=== PATIENT | male | born 1975 | race Caucasian/White ===

== ENCOUNTER 2021-02-08 11:47 | Outpatient (REF) | payer OTHER, SELFPAY ==
[2021-02-08 13:58] LABS: Hematocrit 38.6 % (42.0-52.0); Hemoglobin 13.1 g/dl (14.0-18.0); Mean Corpuscular HGB Conc 33.9 g/dl (31.0-36.0); Mean Corpuscular Hemoglobin 31.9 pg (27.0-33.0); Mean Corpuscular Volume 93.9 fL (80.0-98.0); Mean Platelet Volume 9.3 fL (9.4-12.4); Platelet Count 171 X10*3/uL (160-400); Red Blood Count 4.11 X10*6/uL (4.60-5.80); White Blood Count 4.4 X10*3/uL (4.8-10.8)
[2021-02-08 14:32] LABS: Alanine Aminotransferase 25 U/L (0-40); Albumin Level 4.2 g/dL (3.5-5.0); Alkaline Phosphatase 55 U/L (39-117); Anion Gap 10 (12-20); Aspartate Amino Transferase 18 U/L (5-37); Bilirubin Total 0.5 mg/dL (0.0-1.0); Blood Urea Nitrogen 16 mg/dL (9-16); Calcium 9.5 mg/dL (8.4-10.2); Chloride 109 mmol/L (96-108); Cholesterol 202 mg/dL; Estimated Glomerular Filt Rate > 60; Glucose Fasting 93 mg/dL (60-99); HDL Cholesterol 38 mg/dL; LDL Cholesterol Calculated 142 mg/dl; Potassium 4.2 mmol/L (3.3-5.1); Sodium 141 mmol/L (135-145); Total Protein 6.8 g/dL (6.5-8.0); Triglycerides 111 mg/dL
[2021-02-08 14:36] LABS: Carbon Dioxide 26 mmol/L (22-29)
[2021-02-08 14:44] LABS: TSH reflex Free T4 2.25 uIU/mL (0.32-4.0)
[2021-02-08 14:59] LABS: Erythrocyte Sedimentation Rate 6 MM/HR (0-15)
[2021-02-10 13:41] LABS: CRP High Sensitivity 2.4 mg/L
== END 2021-02-08 11:48 | disposition home or self-care (01) ==
LOC: HO.WFDLDS 11:47
PROVIDERS: Visit Provider Hospitalist
DX: Z00.01 Encounter for general adult medical examination with abnormal findings (principal); K57.92 Diverticulitis of intestine, part unspecified, without perforation or abscess without bleeding
CPT/HCPCS: 36415; 80053; 80061; 84443; 85027; 85652; 86141

== ENCOUNTER 2021-05-10 11:29 | Outpatient (REF) | payer OTHER, SELFPAY ==
[2021-05-10 14:40] LABS: Iron 110 mcg/dL (45-160); Percent Iron Saturation 45 % (15-50); Total Iron Binding Capacity 245 mcg/dL (228-428); Unsaturated Iron Binding 135 ug/dL
[2021-05-10 15:16] LABS: Folate 2.1 ng/mL (> or = 4.0); Vitamin B12 254 pg/mL (200-900)
== END 2021-05-10 11:30 | disposition home or self-care (01) ==
LOC: HO.WFDLDS 11:29
PROVIDERS: Visit Provider Hospitalist
DX: D64.9 Anemia, unspecified (principal)
CPT/HCPCS: 36415; 82607; 82746; 83540

== ENCOUNTER 2021-06-08 12:55 | Outpatient (REF) | payer OTHER, SELFPAY ==
[2021-06-08 13:27] LABS: Hematocrit 41.6 % (42.0-52.0); Hemoglobin 13.9 g/dl (14.0-18.0); Mean Corpuscular HGB Conc 33.4 g/dl (31.0-36.0); Mean Corpuscular Hemoglobin 31.7 pg (27.0-33.0); Platelet Count 180 X10*3/uL (160-400); Red Blood Count 4.38 X10*6/uL (4.60-5.80); Red Cell Distribution Width 12.5 % (11.0-16.0); White Blood Count 4.7 X10*3/uL (4.8-10.8)
[2021-06-08 14:31] LABS: Ferritin 209 ng/mL (20-250)
== END 2021-06-08 12:56 | disposition home or self-care (01) ==
LOC: HO.WFDLDS 12:55
PROVIDERS: Visit Provider Hospitalist
DX: D64.9 Anemia, unspecified (principal)
CPT/HCPCS: 36415; 82728; 85027

== ENCOUNTER → 2021-07-16 10:03 | Outpatient (BNVA) | payer OTHER, SELFPAY | PROVIDERS: PCP Hospitalist; Referring Provider Hospitalist; Visit Provider Internal Medicine Gastroenterology | DX: K57.92 Diverticulitis of intestine, part unspecified, without perforation or abscess without bleeding (principal) ==

== ENCOUNTER 2021-07-19 13:44 | Day surgery (SDC) | payer OTHER, MEDICAID, SELFPAY ==
--- NOTE | 2021-07-18 09:48 | P.CONAN_ITS ---
Documented by User: Elly Gracia NP 07/18/21 09:49 HPI - Anesthesia Eval Consult details Narrative: 46yo M for Upper Endoscopy and Colonoscopy PMFSH Active Problems Active Problems: All Active Problems (Updated 05/10/21 @ 11:15 by Madeline Pascual NP) Anemia (Acute) Rhinitis (Acute) Encounter for routine adult physical exam with abnormal findings (Acute) BMI 37.0-37.9, adult (Acute) Seasonal allergies (Acute) Fatigue (Acute) Diverticulitis (Acute) Encounter to establish care (Acute) Past Medical History Medical History COVID Diverticulitis Fatigue Hernia Family History Family History (Updated 07/16/21 @ 10:14 by FELICIA Avina) Father HTN (hypertension) Stroke Heart attack Mother Lung cancer Maternal Grandmother Lung cancer Other Substance use disorder Surgical History Surgical History Hx of cholecystectomy Social History Social History Housing: House Patient Tobacco Use Status: Never used Tobacco Tobacco use type: Cigarette Cigarettes Per Day: 5 e-Cigarette/Vaping Use: Never Used Use of substances other than those prescribed or required for medical reasons: Yes Are you DNR?: No Advance Directives: No Advance Directives Information Provided: Yes Recently lost weight without trying: No Nutrition Risks: No Nutritional Risk service: No Current occupational status: employed 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 Allergies Allergy/AdvReac Type Severity Reaction Status Date / Time penicillin V Allergy Unknown unknown, Verified 07/16/21 10:11 patient was very young Home Medications Medication Instructions Recorded Confirmed Last Taken Type cetirizine 10 mg capsule (Zyrtec) 10 mg PO DAILY PRN 01/04/21 02/08/21 Unknown History ibuprofen 200 mg tablet 800 mg PO DAILY PRN tab 02/08/21 02/08/21 Unknown History multivit with minerals-iron 18 tab PO 07/16/21 Unknown History mg-folic ac 400 mcg-vit K 25 mcg tablet (Adults Multivitamin) Exam Exam Date and Time: July 18, 2021 0948 Pertinent Lab Results Pertinent Lab Results: Laboratory Tests 02/08/21 06/08/21 11:56 13:00 WBC 4.7 L Hgb 13.9 L Hct 41.6 L Plt Count 180 Sodium 141 Potassium 4.2 Chloride 109 H Carbon Dioxide 26 BUN 16 Creatinine 0.86 Assessment and Plan Assessment Anesthesia Assessment: Chart Reviewed Documented by User: Hank Gaines MD 07/19/21 14:02 [facility] Past Medical History Medical History COVID Diverticulitis Fatigue Hernia Family History Family History (Updated 07/16/21 @ 10:14 by FELICIA Avina) Father HTN (hypertension) Stroke Heart attack Mother Lung cancer Maternal Grandmother Lung cancer Other Substance use disorder Family history of problems with anesthesia: No Surgical History Surgical History Hx of cholecystectomy History of Problems with Anesthesia: No Social History Social History Housing: House Patient Tobacco Use Status: Never used Tobacco Tobacco use type: Cigarette Cigarettes Per Day: 5 e-Cigarette/Vaping Use: Never Used Use of substances other than those prescribed or required for medical reasons: Yes Are you DNR?: No Advance Directives: No Advance Directives Information Provided: Yes Recently lost weight without trying: No Nutrition Risks: No Nutritional Risk service: No Current occupational status: employed 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 Allergies Allergy/AdvReac Type Severity Reaction Status Date / Time penicillin V Allergy Unknown unknown, Verified 07/16/21 10:11 patient was very young Home Medications Medication Instructions Recorded Confirmed Last Taken Type cetirizine 10 mg capsule (Zyrtec) 10 mg PO DAILY PRN 01/04/21 02/08/21 Unknown History ibuprofen 200 mg tablet 800 mg PO DAILY PRN tab 02/08/21 02/08/21 Unknown History multivit with minerals-iron 18 tab PO 07/16/21 Unknown History mg-folic ac 400 mcg-vit K 25 mcg tablet (Adults Multivitamin) Exam Airway Loose/Missing/Broken Teeth: Yes Assessment and Plan Assessment Anesthesia Assessment: Anesthesia Plan Discussed Final Anesthetic Review Family History of Problems with Anesthesia: No History of Problems with Anesthesia: No NPO: Yes ASA Class: III Final Preanesthetic Review: No Changes in Pt Med Stat, Meds/Allgs Chart Reviewed, Consent Obtained/Reviewed and Anes Risks/Benef Reviewed Patient Risk: Intermediate Procedure Risk: Low Anesthetic Plan Anesthetic Plan: MAC: Disposition: Standard PACU
--- NOTE | 2021-07-19 13:34 | MHC.SHP ---
Pre-Procedural Eval Section A Date of Service: 07/19/21 The patient is an INPATIENT: No The History & Physical has been completed within 30 days and I have reviewed it.: Yes Section B Chief Complaint: anemia,epi pain Allergies: Allergies Allergy/AdvReac Type Severity Reaction Status Date / Time penicillin V Allergy Unknown unknown, Verified 07/16/21 10:11 patient was very young Plan I have reviewed the history and physical and performed a pertinent physical examination on my patient. No changes have occurred unless specified.
[2021-07-19 13:50] VITALS: BMI 39.5
[2021-07-19 13:54] VITALS: BP 156/118; PULSE 82; RESP 18; TEMP 36.9; O2SAT 98
[2021-07-19] MEDS: Lactated Ringers 1,000 ML 100 ML IVCONT (14:07)
--- NOTE | 2021-07-19 14:29 | P.OP_ITS ---
Operative Note Operative Note Date of Service: 07/19/21 Narrative: Operative Information Procedure Description: EGD, Colonoscopy Indication: anemia, epigastric pain Anesthesia: MAC FLEXIBLE TRANSORAL UPPER GASTROINTESTINAL ENDOSCOPY AND COLONOSCOPY PROCEDURE NOTE UPPER ENDOSCOPY Consent: Indications for the procedure and potential complications of bleeding, perforation, reaction to medications and missed diagnosis were discussed with the patient and informed consent was obtained. Instrument: Olympus GIF H 190 J mid size upper endoscope Monitoring: Vital signs and clinical assessment, continuous EKG monitoring, Pulse oximetry, Carbon Dioxide monitoring and blood pressure monitoring were done throughout the procedure. Procedure: The patient was placed in the left lateral decubitis position and pre-procedure medications were administered and a bite block was placed. The endoscope was inserted into the mouth and advanced under direct vision to the third part of duodenum. A careful inspection was made as the upper endoscope was withdrawn including a retroflexed examination of the proximal stomach; Findings and interventions are described below. Findings: Larynx:normal Esophagus: GE junction at 43 cm, diaphragm hiatus at 43 cm, esophagitis at GEJ with irregular Z line, bx taken Stomach: Moderate intense erythema. Biopsies were obtained. Grade 2 flap valve on retroflexed examination of the cardia. Bilious fluid noted in stomach. Duodenum: Normal bulb and descending duodenum, bx taken Intervention: Biopsies as noted above COLONOSCOPY Instrument: Olympus variable stiffness ADULT scope 190L Colonoscopy Monitoring: Vital signs and clinical assessment, continuous EKG monitoring, Pulse oximetry, Carbon Dioxide monitoring and blood pressure monitoring were done throughout the procedure. Colon withdrawal time was 8 minutes. Procedure: The patient was placed in the left lateral decubitis position and pre-procedure medications were administered. After a digital rectal examination of the ano-rectum, the video colonoscope was inserted into the rectum and advanced through the colon to the cecum/TI. The colonoscope was slowly withdrawn in a retrograde panoramic fashion and the colon mucosa was carefully examined including a retroflexed view of the rectum. Findings and interventions are described below. Procedure Difficulty: easy Findings: Terminal Ileum-normal Cecum:normal Ascending Colon: normal Transverse Colon -normal Descending Colon:normal Sigmoid Colon: patchy erythema and edema of mucosa, small diverticula noted with mucosal hypertrophy Rectum: Retroflexion with small internal hemorrhoids, grade I Anorectum - normal Colon preparation: [place] Bowel Preparation Scale Right colon; 3 Transverse colon: 3 Left colon; 3 (0 = Unprepared colon segment with mucosa not seen due to solid stool that cannot be cleared. 1 = Portion of mucosa of the colon segment seen, but other areas of the colon segment not well seen due to staining, residual stool and/or opaque liquid. 2 = Minor amount of residual staining, small fragments of stool and/or opaque liquid, but mucosa of colon segment seen well. 3 = Entire mucosa of colon segment seen well with no residual staining, small fragments of stool or opaque liquid) Impression and Post Procedure Diagnosis: Endoscopy Findings: esophagitis gastritis, possibly bile acid assocaited reflux or from nsaid use Colonoscopy Findings: internal hemorrhoids SCAD (segmental colitis associated with diverticulosis) Plan: Await Pathology results Repeat Colonoscopy in 10 years or earlier if clinically indicated High fiber diet leaflet avoid straining at stool, epsom salts and sitz bath, anusol supps or cream If H pylori pos then treat, can use PPi in meantime, Above findings were reviewed with the patient and relevant handouts were provided if indicated.
--- NOTE | 2021-07-19 14:29 | PM.OP ---
Brief Operative Note Date of Service: 07/19/21 Pre-op diagnosis: anemia, epigastric pain Post-op diagnosis: same Procedure: see op note Surgeon: Adriana Cid MD Anesthesia: MAC Was an Market Relationship Manager used for this Procedure?: No Estimated blood loss (mL): 0 Condition: stable Disposition: PACU
[2021-07-19 15:03] VITALS: BP 120/75; PULSE 91; RESP 20; TEMP 36.4; O2SAT 96
[2021-07-19 15:18] VITALS: BP 125/76; PULSE 69; RESP 20; TEMP 36.4; O2SAT 98
== END 2021-07-19 15:54 ==
LOC: HO.SSS 13:45
PROVIDERS: PCP Hospitalist; Visit Provider Internal Medicine Gastroenterology
PROC: (CPT 45380; principal; 2021-07-19 15:00)
DX: D64.9 Anemia, unspecified (principal); Z87.19 Personal history of other diseases of the digestive system; K57.30 Diverticulosis of large intestine without perforation or abscess without bleeding; K64.0 First degree hemorrhoids; K52.9 Noninfective gastroenteritis and colitis, unspecified; K20.80 Other esophagitis without bleeding; K29.50 Unspecified chronic gastritis without bleeding; R10.13 Epigastric pain; R53.83 Other fatigue; Z86.16 Personal history of COVID-19; Z88.0 Allergy status to penicillin; Z90.49 Acquired absence of other specified parts of digestive tract
CPT/HCPCS: 45380; 43239; 88305; 88342; J2250

== ENCOUNTER 2021-08-16 10:30 | Emergency (ER) | payer OTHER, MEDICAID, SELFPAY ==
[2021-08-16 10:40] VITALS: BP 147/89; PULSE 71; RESP 20; TEMP 36.6; O2SAT 97; BMI 39.0
--- NOTE | 2021-08-16 10:54 | ED.GENADULT ---
HPI - General Adult General Chief complaint: General Medical Stated complaint: hemmhoids Time Seen by Provider: 08/16/21 10:54 Source: patient Mode of arrival: ambulatory Limitations: no limitations History of Present Illness HPI narrative: 46 y/o male presents to the ER with history of diverticulosis, hemorrhoids who presents to the ER with 6/10 rectal pain. He states yesterday the pain got acutely worse. He has been constipated lately. He felt a now external hemorrhoid protrude and he was able to partially replaced it. He denies any bleeding. He has not used any topical creams or ointments. He had a recent colonoscopy showing internal hemorrhoids. He reports a history of hemorrhoids for the last 8 years and suffers intermittently from constipation with flare ups. He has never had a surgical consult or needed any surgical treatments. MD complaint: Painful hemorrhoid Onset (ago): day(s) (1) Location: buttocks Radiation: non-radiation Severity: moderate Severity scale (1-10): 6 Quality: aching Pain Consistency: constant Relieving factors: rest Exacerbating factors: other (Sitting) Associated symptoms: denies other symptoms Treatments prior to arrival: none Related Data Home Medications Medication Instructions Recorded Confirmed cetirizine 10 mg capsule (Zyrtec) 10 mg PO DAILY PRN 01/04/21 02/08/21 ibuprofen 200 mg tablet 800 mg PO DAILY PRN 02/08/21 02/08/21 multivit with minerals-iron 18 tab PO 07/16/21 mg-folic ac 400 mcg-vit K 25 mcg tablet (Adults Multivitamin) Previous Rx's Medication Instructions Recorded fluticasone propionate 50 2 spray intranasal DAILY 1 month 01/15/21 mcg/actuation nasal #16 grams spray,suspension folic acid 1 mg tablet 1 mg PO DAILY #90 tabs 05/10/21 dicyclomine 10 mg capsule 10 mg PO TID 1 month #90 caps 06/08/21 peg-electrolyte solution 420 gram 240 ml PO Q10M #4,000 mL 07/16/21 oral solution (Nulytely [place]) pantoprazole 40 mg tablet,delayed 40 mg PO DAILY #60 tabs 07/19/21 release docusate sodium 100 mg capsule 100 mg PO BID #30 caps 08/16/21 (Colace) hydrocortisone 1 %-pramoxine 1 % 1 appl MD QID #10 grams 08/16/21 rectal foam (Proctofoam HC) hydrocortisone acetate 30 mg 30 mg MD DAILY #12 ea 08/16/21 rectal suppository polyethylene glycol 3350 17 17 g PO DAILY #119 grams 08/16/21 gram/dose oral powder (Laxative PEG 3350) Allergies Allergy/AdvReac Type Severity Reaction Status Date / Time penicillin V Allergy Unknown unknown, Verified 07/16/21 10:11 patient was very young Review of Systems Review of Systems: Constitutional: No Fever, No Chills Cardiovascular: No Chest Pain, No SOB Respiratory: No Cough, No Sputum Gastrointestinal: No Nausea, No Vomiting, No Diarrhea, No abdominal Pain, No Hematochezia, No Melena, +rectal pain Genitourinary: No Dysuria, No Urinary Frequency, No Hematuria Musculoskeletal: No joint pain, No Myalgias Skin: No Skin Lesions, No rash Neuro: No Weakness, No Numbness, No Dizziness, No Headache Heme/Lymph: No Bruising, No Lymphadenopathy PMFSH Past Medical History Medical History COVID Diverticulitis Fatigue Hernia Surgical History Hx of cholecystectomy Family History Family History (Updated 07/16/21 @ 10:14 by FELICIA Avina) Father HTN (hypertension) Stroke Heart attack Mother Lung cancer Maternal Grandmother Lung cancer Other Substance use disorder Social History Social History Housing: House Patient Tobacco Use Status: Never used Tobacco Tobacco use type: Cigarette Cigarettes Per Day: 5 e-Cigarette/Vaping Use: Never Used service: No Current occupational status: employed 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 Oriented X3. No acute distress. HEENT: normal inspection CVS: Normal heart rate and rhythm. Pulses normal. Respiratory: No respiratory distress. Abdomen: Obese, soft, nontender, normal bowel sounds x4. Rectal: Protruding internal hemorrhoid now externally visualized, pink and tender without any evidence of thrombosis. Non bleeding. No surrounding erythema or warmth to suggest abscess. No palpable hemorrhoids on MAYRA. Tender. Skin: Skin warm and dry. Normal skin color. Normal skin turgor. No rashes. Extremities: Normal inspection x4, normal range of motion Neuro: Oriented X 3. Grossly normal, nonfocal Course Course Course Narrative: 46-year-old male presents to the ER with a painful hemorrhoid. It is not thrombosed on examination. At that is not bleeding. Will prescribe MD suppositories, topical LMX provided. Will give him referral to Gen Surgery for further evaluation. Will also provide bowel regimen to help with constipation and prevent futher pain. Stable for d/c home. Critical Care Time Critical Care Time Critical Care Time: No Discharge Plan Discharge Clinical Impression: Hemorrhoids Patient Disposition: Home, Self-Care Instructions: Hemorrhoids (ED), Sitz Bath (DC) Additional Instructions: Take the laxatives to help keep your stool soft and prevent constipation. Use the rectal suppositories with steroids to help decrease the inflammation and shrink the hemorrhoids. Take warm baths with Epsom salts to help shrink the hemorrhoids. Follow-up with Dr. Mesa for further evaluation of possible removal. If you develop new or worsening symptoms call 911 or come back to the ER for further evaluation. Prescriptions: New Proctofoam HC 1-1 % foam 1 appl MD QID Qty: 10 0RF hydrocortisone acetate 30 mg suppository 30 mg MD DAILY Qty: 12 0RF polyethylene glycol 3350 [Laxative PEG 3350] 17 gram/dose powder 17 g PO DAILY Qty: 119 0RF docusate sodium [Colace] 100 mg capsule 100 mg PO BID Qty: 30 0RF No Action folic acid 1 mg tablet 1 mg PO DAILY Qty: 90 1RF dicyclomine 10 mg capsule 10 mg PO TID 30 Days Qty: 90 2RF pantoprazole 40 mg tablet,delayed release (DR/EC) 40 mg PO DAILY Qty: 60 2RF Zyrtec 10 mg capsule 10 mg PO DAILY PRN fluticasone propionate 50 mcg/actuation spray,suspension 2 spray intranasal DAILY 30 Days Qty: 16 3RF Rx Instructions: administer into each nostril ibuprofen 200 mg tablet 800 mg PO DAILY PRN Adults Multivitamin 18 mg iron-400 mcg-25 mcg tablet PO peg-electrolyte soln [Nulytely [place]] 420 gram recon soln 240 ml PO Q10M Qty: 4000 0RF Rx Instructions: until fecal effluent is clear, start drinking 8 pm Referrals: Jose Mesa MD [Physician] - (hemorrhoids) Interventions: ED Discharge Assessment Last Done: 08/16/21 11:26 Discharge Date/Time: 08/16/21 11:27
[2021-08-16] MEDS: Lidocaine 4 % Cream KIT 1 APPL TOPICAL (11:11)
== END 2021-08-16 11:27 | disposition home or self-care (01) ==
PROVIDERS: Emergency Provider Student in an Organized Health Care Education/Training Program; PCP Hospitalist
DX: K64.8 Other hemorrhoids (principal); K59.00 Constipation, unspecified; F17.200 Nicotine dependence, unspecified, uncomplicated
CPT/HCPCS: 99283

== ENCOUNTER → 2021-10-08 09:51 | Outpatient (BNVA) | payer OTHER, SELFPAY | PROVIDERS: PCP Hospitalist; Referring Provider Hospitalist; Visit Provider Surgery | DX: K64.5 Perianal venous thrombosis (principal) | CPT/HCPCS: 99212 ==

== ENCOUNTER → 2021-12-03 10:37 | Outpatient (BNVA) | payer OTHER, MEDICAID, SELFPAY | PROVIDERS: PCP Hospitalist; Visit Provider Internal Medicine Gastroenterology | DX: K20.90 Esophagitis, unspecified without bleeding (principal); K29.70 Gastritis, unspecified, without bleeding; K64.8 Other hemorrhoids; Z98.890 Other specified postprocedural states | CPT/HCPCS: 99212 ==

== ENCOUNTER 2022-01-28 09:41 | Emergency (ER) | payer OTHER, SELFPAY ==
--- NOTE | ~2022-01-28 | CT_ITS ---
EXAMINATION: CT ABDOMEN AND PELVIS WITHOUT CONTRAST CLINICAL INFORMATION: Hematuria and low back pain. COMPARISON: None TECHNIQUE: Multidetector volumetric imaging was performed from the superior aspect of the liver through the pubic symphysis. Sagittal and coronal reformatted images were obtained on the technologist's workstation. Lack of intravenous and oral contrast limits visceral evaluation. This CT examination was performed using dose optimization techniques as appropriate, variously including the following: *Automated exposure control *Adjustment of mA and/or kV according to patient size (this includes techniques or standardized protocols for targeted exams where dose is matched to indication/reason for exam; i.e. extremities or head) *Use of iterative reconstruction technique DLP: 949 mGy-cm FINDINGS: LUNG BASES: The visualized lung bases are unremarkable. LIVER, GALLBLADDER, AND BILIARY TREE: No hepatic abnormality. Status post cholecystectomy. PANCREAS: Unremarkable. SPLEEN: Unremarkable. ADRENAL GLANDS: Unremarkable. KIDNEYS AND URETERS: Left kidney shows punctate, nonobstructing calculi in the upper pole. No right intrarenal calculi. No hydronephrosis bilaterally. BLADDER: Unremarkable. GASTROINTESTINAL TRACT: The stomach, small bowel and appendix are unremarkable. The sigmoid colon shows mild diverticulosis without surrounding abnormality. The rectum is unremarkable. ABDOMINAL WALL: Small fat-containing right inguinal hernia without associated abnormality. LYMPH NODES: Mild hazy opacities without significant mesenteric adenopathy. VASCULAR: Unremarkable. PELVIC VISCERA: Unremarkable. OSSEOUS STRUCTURES: Transitional L5-S1 with sacralization of L5 and a rudimentary disc at L5-S1. No suspicious abnormality. CT/CT abdomen pelvis wo IV con IMPRESSION: 1. Punctate nonobstructing left upper pole intrarenal calculi. No hydroureteronephrosis. 2. Mild sigmoid diverticulosis without evidence for acute diverticulitis. 3. Small fat-containing right inguinal hernia without associated abnormality. Mild hazy opacities in the central mesentery is nonspecific and could be secondary to chronic changes. No associated pathologically enlarged mesenteric lymph nodes. 4. 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 Fleischner guidelines were followed.
[2022-01-28 10:25] VITALS: BP 117/76; PULSE 68; RESP 16; TEMP 37; O2SAT 97; BMI 37.4
[2022-01-28 10:37] LABS: MANUAL DIFF FLAG NO
[2022-01-28 10:40] LABS: Basophils Percent Auto 0.8 % (0-2); Eosinophils Absolute Auto 0.1 X10*3/uL (0.0-0.4); Eosinophils Percent Auto 1.6 % (0-4); Hematocrit 39.8 % (42.0-52.0); Hemoglobin 13.5 g/dl (14.0-18.0); Imm Gran Abs Auto 0.01 X10*3/uL (0.00-0.03); Imm Gran Pct Auto 0.2 % (0.0-0.4); Lymphocytes Absolute Auto 0.6 X10*3/uL (1.2-4.9); Lymphocytes Percent Auto 12.6 % (20-40); Mean Corpuscular HGB Conc 33.9 g/dl (31.0-36.0); Mean Corpuscular Hemoglobin 31.1 pg (27.0-33.0); Mean Corpuscular Volume 91.7 fL (80.0-98.0); Mean Platelet Volume 8.8 fL (9.4-12.4); Monocytes Absolute Auto 0.4 X10*3/uL (0.1-1.2); Monocytes Percent Auto 8.2 % (2-11); Neutrophils Absolute Auto 3.8 x10*3/uL (2.0-8.3); Neutrophils Percent Auto 76.6 % (45-73); Platelet Count 179 X10*3/uL (160-400); Red Blood Count 4.34 X10*6/uL (4.60-5.80)
[2022-01-28 11:01] LABS: Anion Gap 14 (12-20); Blood Urea Nitrogen 12 mg/dL (9-16); Calcium 9.2 mg/dL (8.4-10.2); Carbon Dioxide 22 mmol/L (22-29); Chloride 106 mmol/L (96-108); Creatinine Clr Calc Pharmacy 114.9; Estimated Glomerular Filt Rate > 60; Glucose Random 93 mg/dL (60-115); Potassium 4.6 mmol/L (3.3-5.1); Sodium 137 mmol/L (135-145)
--- NOTE | 2022-01-28 12:00 | ED_ITS ---
HPI - General Adult General Chief complaint: Back Pain/Injury Stated complaint: Sweating/Abd pain/Kidney pain Time Seen by Provider: 01/28/22 12:32 Source: patient Mode of arrival: ambulatory Limitations: no limitations History of Present Illness HPI narrative: 46 yo male with history of anemia, anxiety, depression, diverticulitis, obesity, seasonal allergies, hx gastric ulcers, hx hemorrhoids who presents to the ER for evaluation of left sided flank pain and kidney pain that started today. He states for the last 6 days he has had on/off subjective fevers and chills. He states his abdomen has been distended and bloated. He has a history of gastric ulcers and is supposed to be on PPI 2 times per day. Patient states he has had body aches and just has not felt right for the last week or so. Today he woke u p with kidney pain, left worse than right. He denies any urgency, frequency or dysuria. He does have a history kidney stone in the past but reports the pain is slightly different. MD complaint: Left-sided flank pain Onset (ago): hour(s) Location: back and abdomen Severity: moderate Severity scale (1-10): 7 Quality: stabbing and aching Pain Consistency: intermittent Relieving factors: rest Exacerbating factors: movement Associated symptoms: fever/chills and malaise Treatments prior to arrival: none Related Data Home Medications Medication Instructions Recorded Confirmed cetirizine 10 mg capsule (Zyrtec) 10 mg PO DAILY PRN 01/04/21 10/08/21 ibuprofen 200 mg tablet 800 mg PO DAILY PRN 02/08/21 10/08/21 multivit with minerals-iron 18 tab PO 07/16/21 10/08/21 mg-folic ac 400 mcg-vit K 25 mcg tablet (Adults Multivitamin) Previous Rx's Medication Instructions Recorded dicyclomine 10 mg capsule 10 mg PO TID 1 month #90 caps 09/05/21 lorazepam 0.5 mg tablet (Ativan) 0.5 mg PO BID PRN anxiety 28 days 09/19/21 #42 tabs polyethylene glycol 3350 17 17 g PO DAILY PRN constipation 09/19/21 gram/dose oral powder (Laxative #119 grams PEG 3350) blood pressure kit-extra large #1 ea 10/31/21 fluticasone propionate 50 2 spray intranasal DAILY #16 mL 11/07/21 mcg/actuation nasal spray,suspension trazodone 50 mg tablet 50 mg PO BEDTIME #60 tabs 11/08/21 folic acid 1 mg tablet 1 mg PO DAILY #90 tabs 12/04/21 lansoprazole 30 mg capsule,delayed 30 mg PO BID #60 caps 01/10/22 release cefuroxime axetil 250 mg tablet 250 mg PO BID 7 days #14 tabs 01/28/22 Allergies Allergy/AdvReac Type Severity Reaction Status Date / Time penicillin V Allergy Unknown unknown, Verified 12/13/21 11:34 patient was very young Review of Systems Review of Systems: Constitutional: + Fever, + Chills ENT/Mouth: No sore throat, No Rhinorrhea Cardiovascular: No Chest Pain, No SOB Respiratory: No Cough, No Sputum Gastrointestinal: + Nausea, No Vomiting, No Diarrhea, No abdominal Pain, No Hematochezia, No Melena Genitourinary: No Dysuria, No Urinary Frequency, No Hematuria Musculoskeletal: No joint pain, + Myalgias Skin: No Skin Lesions, No rash Neuro: No Weakness, No Numbness, No Dizziness, No Headache Heme/Lymph: No Bruising, No Lymphadenopathy Endocrine: No Polyuria, No Polydipsia PMFSH Past Medical History Medical History Chronic GERD COVID Diverticulitis Fatigue Hernia Surgical History History of esophagogastroduodenoscopy (EGD) Hx of cholecystectomy Hx of colonoscopy Family History Family History Father HTN (hypertension) Stroke Heart attack Mother Lung cancer Maternal Grandmother Lung cancer Other Substance use disorder Social History Social History Housing: House Patient Tobacco Use Status: Current everyday Tobacco user Tobacco use type: Cigarette Cigarettes Per Day: 5 e-Cigarette/Vaping Use: Never Used Advance Directives: No Advance Directives Information Provided: Yes service: No Current occupational status: employed 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 Oriented X3. No acute distress. Eyes: Pupils equal, round and reactive to light. ENT: Pharynx normal. Neck: Normal inspection. Neck supple. CVS: Normal heart rate and rhythm. Pulses normal. Respiratory: No respiratory distress. Breath sounds normal. Abdomen: Soft and nontender. normal +BS x4. left CVA tenderness, mild. Skin: Skin warm and dry. Normal skin color. Normal skin turgor. No rashes. Extremities: No lower extremity edema. Neuro: Oriented X 3. No motor deficit. No sensory deficit. Steady gait. Nonfocal Course Course Course Narrative: 46 yo male with hx GERD, diverticulitis, hx gastric ulcers, hemorrhoids, constipation, kidney stone & chronic abdominal pain who presents to the ER with kidney pain that started today. The last 6 days had on/off chills/sweats. Reports bloating after Thanksgiving and ongoing nausea since. Follow Dr. Cid. Denies dysuria but urine is darker. Increased hydration at home so frequency is more than usual. Labs look ok. Urine is tea colored - will get dry CT to r/o kidney stone. Reevaluation(s) Reevaluation #1: Scan showing punctate kidney stones in the left upper kidney. No other hydronephrosis or obstructing kidney stone visualized. Patient's urinalysis is showing nitrite positive consistent with UTI. IV Rocephin ordered. Lactic is normal. Not septic. Tolerating PO well, stable for d/c home with PO abx. Patient agrees with plan. Medications Administered Discontinued Medications Generic Name Dose Route Start Last Admin Trade Name Freq PRN Reason Stop Dose Admin Lactated Ringer's 1,000 mls @ 999 mls/hr 01/28/22 12:45 01/28/22 15:21 Lr IV 01/28/22 13:45 Infused .Q1H1M TONEY Infusion Ceftriaxone Sodium 1 gm/ 50 mls @ 100 mls/hr 01/28/22 12:33 01/28/22 13:51 Sodium Chloride IV 01/28/22 13:02 Infused ONCE ONE Infusion Medical Decision Making Lab Data Result diagrams: 01/28/22 10:33 01/28/22 10:33 Labs: Lab Results 01/28/22 01/28/22 01/28/22 Range/Units 10:33 10:33 12:03 WBC 5.0 (4.8-10.8) X10*3/uL RBC 4.34 L (4.60-5.80) X10*6/uL Hgb 13.5 L (14.0-18.0) g/dl Hct 39.8 L (42.0-52.0) % MCV 91.7 (80.0-98.0) fL MCH 31.1 (27.0-33.0) pg MCHC 33.9 (31.0-36.0) g/dl RDW 12.0 (11.0-16.0) % Plt Count 179 (160-400) X10*3/uL MPV 8.8 L (9.4-12.4) fL Immature Gran % (Auto) 0.2 (0.0-0.4) % Neut % (Auto) 76.6 H (45-73) % Lymph % (Auto) 12.6 L (20-40) % Republic % (Auto) 8.2 (2-11) % Eos % (Auto) 1.6 (0-4) % Baso % (Auto) 0.8 (0-2) % Lymph # (Auto) 0.6 L (1.2-4.9) X10*3/uL [place] # (Auto) 0.4 (0.1-1.2) X10*3/uL Eos # (Auto) 0.1 (0.0-0.4) X10*3/uL Baso # (Auto) 0.0 (0.0-0.2) X10*3/uL Abs Immat Gran (auto) 0.01 (0.00-0.03) X10*3/uL Absolute Neuts (auto) 3.8 (2.0-8.3) x10*3/uL Absolute Nucleated RBC 0.000 (0.0-0.012) X10*3/uL Nucleated RBC % (auto) 0.0 (0.0-0.2) /100WBC Sodium 137 (135-145) mmol/L Potassium 4.6 (3.3-5.1) mmol/L Chloride 106 (96-108) mmol/L Carbon Dioxide 22 (22-29) mmol/L Anion Gap 14 (12-20) BUN 12 (9-16) mg/dL Creatinine 1.13 (0.5-1.4) mg/dL Estim Creat Clear Calc 114.9 Estimated GFR > 60 Random Glucose 93 (60-115) mg/dL Lactic Acid (0.5-2.0) mmol/L Calcium 9.2 (8.4-10.2) mg/dL Urine Color Dark Yellow Urine Appearance Clear Urine pH 5.5 (5.0-9.0) Ur Specific [place] >= 1.030 H (1.005-1.025) Urine Protein 30 (1+) H (Neg-Trace) mg/dL Urine Glucose (UA) Negative (Negative) mg/dL Urine Ketones Trace (Negative) mg/dL Urine Blood Negative (Negative) Urine Nitrite Positive H (Negative) Ur Leukocyte Esterase Trace H (Negative) Urine RBC 0-2 (0-2) /HPF Urine WBC 0-5 (0-5) /HPF Ur Squamous Epith Cells 0-2 (0-2) /HPF Urine Bacteria Trace (None Seen) Hyaline Casts 3-5 (0-2) /LPF 01/28/22 Range/Units 12:56 WBC (4.8-10.8) X10*3/uL RBC (4.60-5.80) X10*6/uL Hgb (14.0-18.0) g/dl Hct (42.0-52.0) % MCV (80.0-98.0) fL MCH (27.0-33.0) pg MCHC (31.0-36.0) g/dl RDW (11.0-16.0) % Plt Count (160-400) X10*3/uL MPV (9.4-12.4) fL Immature Gran % (Auto) (0.0-0.4) % Neut % (Auto) (45-73) % Lymph % (Auto) (20-40) % [place] % (Auto) (2-11) % Eos % (Auto) (0-4) % Baso % (Auto) (0-2) % Lymph # (Auto) (1.2-4.9) X10*3/uL [place] # (Auto) (0.1-1.2) X10*3/uL Eos # (Auto) (0.0-0.4) X10*3/uL Baso # (Auto) (0.0-0.2) X10*3/uL Abs Immat Gran (auto) (0.00-0.03) X10*3/uL Absolute Neuts (auto) (2.0-8.3) x10*3/uL Absolute Nucleated RBC (0.0-0.012) X10*3/uL Nucleated RBC % (auto) (0.0-0.2) /100WBC Sodium (135-145) mmol/L Potassium (3.3-5.1) mmol/L Chloride (96-108) mmol/L Carbon Dioxide (22-29) mmol/L Anion Gap (12-20) BUN (9-16) mg/dL Creatinine (0.5-1.4) mg/dL Estim Creat Clear Calc Estimated GFR Random Glucose (60-115) mg/dL Lactic Acid 0.8 (0.5-2.0) mmol/L Calcium (8.4-10.2) mg/dL Urine Color Urine Appearance Urine pH (5.0-9.0) Ur Specific [place] (1.005-1.025) Urine Protein (Neg-Trace) mg/dL Urine Glucose (UA) (Negative) mg/dL Urine Ketones (Negative) mg/dL Urine Blood (Negative) Urine Nitrite (Negative) Ur Leukocyte Esterase (Negative) Urine RBC (0-2) /HPF Urine WBC (0-5) /HPF Ur Squamous Epith Cells (0-2) /HPF Urine Bacteria (None Seen) Hyaline Casts (0-2) /LPF Critical Care Time Critical Care Time Critical Care Time: No Discharge Plan Discharge Clinical Impression: UTI (urinary tract infection) Patient Disposition: Home, Self-Care Instructions: Urinary Tract Infection in Men (ED) Additional Instructions: Your lab workup today was unremarkable. Your urine test showed evidence of urinary tract infection. Your CT scan showed kidney stones in the left kidney but none in the ureter and no dilation of your kidney. Take the prescribed antibiotic for your UTI starting tomorrow - you were given IV dose today in the ER. Continue Motrin and Tylenol around the clock for pain. Drink plenty of fluids. If you develop new or worsening symptoms call 911 or come back to the ER for further evaluation. Prescriptions: New cefuroxime axetil 250 mg tablet 250 mg PO BID 7 Days Qty: 14 0RF No Action fluticasone propionate 50 mcg/actuation spray,suspension 2 spray intranasal DAILY Qty: 16 0RF trazodone 50 mg tablet 50 mg PO BEDTIME MDD two tabs may repeat if needed Qty: 60 2RF folic acid 1 mg tablet 1 mg PO DAILY Qty: 90 3RF lansoprazole 30 mg capsule,delayed release(DR/EC) 30 mg PO BID Qty: 60 2RF Zyrtec 10 mg capsule 10 mg PO DAILY PRN lorazepam [Ativan] 0.5 mg tablet 0.5 mg PO BID PRN (Reason: anxiety) 28 Days Qty: 42 0RF Rx Instructions: pt to take one daily as needed and has an extra tab every two days for increased anxiety of polyethylene glycol 3350 [Laxative PEG 3350] 17 gram/dose powder 17 g PO DAILY PRN (Reason: constipation) Qty: 119 3RF ibuprofen 200 mg tablet 800 mg PO DAILY PRN dicyclomine 10 mg capsule 10 mg PO TID 30 Days Qty: 90 2RF (DME) blood pressure kit-extra large Kit See Rx Instructions .Route Qty: 1 0RF Rx Instructions: As directed Adults Multivitamin 18 mg iron-400 mcg-25 mcg tablet PO Referrals: Madeline Pascual NP [Primary Care Provider] - Stand Alone Forms: Work/School Release Interventions: ED Discharge Assessment Last Done: 01/28/22 15:21 Discharge Date/Time: 01/28/22 15:22
[2022-01-28 12:18] LABS: Appearance Urine Clear; Color Urine Dark Yellow; Glucose Urine UA Negative (Negative); Leukocyte Esterase Urine Trace (Negative); Nitrite Urine Positive (Negative); PH 5.5 (5.0-9.0); Specific Gravity - Urine >= 1.030 (1.005-1.025); UMIC TRIGGER UACC YES; Urine Blood Negative (Negative); Urine Ketones Trace mg/dL (Negative); Urine Protein 30 (1+) mg/dL (Neg-Trace)
[2022-01-28 12:30] LABS: Bacteria Urine Trace (None Seen); RBC Urine 0-2 /HPF (0-2); Squamous Epithelial Cell Urine 0-2 /HPF (0-2); UACC Culture Trigger YES; WBC Urine 0-5 /HPF (0-5)
[2022-01-28 13:17] LABS: Lactic Acid 0.8 mmol/L (0.5-2.0)
[2022-01-28] MEDS: cefTRIAXone sodium 1 GM in 0.9 % Sodium Chloride 50 ML IV (13:27)
[2022-01-28] MEDS: Lactated Ringers 1,000 ML 999 ML IV (13:48)
== END 2022-01-28 15:22 | disposition home or self-care (01) ==
PROVIDERS: Physician Assistant; Emergency Provider Emergency Medicine; PCP Hospitalist
DX: N39.0 Urinary tract infection, site not specified (principal); R10.9 Unspecified abdominal pain; N20.0 Calculus of kidney; F17.210 Nicotine dependence, cigarettes, uncomplicated; E66.9 Obesity, unspecified; Z68.37 Body mass index [BMI] 37.0-37.9, adult; Z79.899 Other long term (current) drug therapy
CPT/HCPCS: 36415; 74176; 80048; 81001; 83605; 85025; 87040; 87086; 96361; 96365; 99283; 99284; J0696

== ENCOUNTER 2022-02-17 11:16 | Emergency (ER) | payer OTHER, MEDICAID, SELFPAY ==
--- NOTE | ~2022-02-17 | CT_ITS ---
EXAMINATION: CT ABDOMEN AND PELVIS WITHOUT CONTRAST CLINICAL INFORMATION: Abdominal pain, constipation and urinary symptoms. COMPARISON: CT abdomen pelvis January 20, 2022 TECHNIQUE: Multidetector volumetric imaging was performed from the superior aspect of the liver through the pubic symphysis. Sagittal and coronal reformatted images were obtained on the technologist's workstation. This CT examination was performed using dose optimization techniques as appropriate, variously including the following: *Automated exposure control *Adjustment of mA and/or kV according to patient size (this includes techniques or standardized protocols for targeted exams where dose is matched to indication/reason for exam; i.e. extremities or head) *Use of iterative reconstruction technique DLP: 954 mGy-cm FINDINGS: Visualized lung bases are well aerated. 7 mm pulmonary nodule of the medial right lung base. The liver demonstrates normal size, contour and attenuation. The gallbladder surgically absent. There is fatty atrophy of the pancreas. The spleen and adrenal glands are unremarkable. Symmetrically sized kidneys. 2 mm nonobstructing left renal calculus. No right-sided renal calculi. No hydronephrosis of either kidney. The stomach is relatively decompressed. Normal caliber loops of small and large bowel. Normal appendix. Mild colonic diverticulosis without CT evidence to suggest active diverticulitis. Mild haziness of the central left mesentery with several associated prominent lymph nodes, nonspecific. Normal caliber abdominal aorta. No retroperitoneal lymphadenopathy. The bladder is normal in appearance. The prostate gland is normal in size. No gross free pelvic fluid. No inguinal lymphadenopathy. Small fat-containing inguinal hernias bilaterally, the larger on the right. No acute osseous abnormality. CT/CT abdomen pelvis wo IV con IMPRESSION: 1. Mild colonic diverticulosis without CT evidence to suggest active diverticulitis. 2. Mild haziness of the central left mesentery with several associated prominent lymph nodes. This is a nonspecific finding but most suggestive of mesenteric panniculitis. 3. 2 mm nonobstructing left renal calculus. No hydronephrosis. 4. 7 mm pulmonary nodule of the medial right lung base. According to the UPDATED 2017 Fleischner Society recommendations, the advised follow-up imaging for a single 6-8 mm solid nodule is: LOW RISK PATIENT: CT at 6-12 months, then consider CT at 18-24 months. HIGH RISK PATIENT: CT at 6-12 months, then at 18-24 months.
[2022-02-17 11:50] VITALS: BP 132/95; PULSE 65; RESP 18; TEMP 36.7; O2SAT 99; BMI 37.7
--- NOTE | 2022-02-17 11:52 | ED_ITS ---
HPI - Male Genitourinary General Chief complaint: General Medical <EMILY Zhu - Last Filed: 02/17/22 11:57> Stated complaint: UTI/Blood in urine <EMILY Zhu - Last Filed: 02/17/22 11:57> Time Seen by Provider: 02/17/22 15:28 <EMILY Zhu - Last Filed: 02/17/22 11:57> Source: patient <EMILY Hennessy - Last Filed: 02/18/22 10:03> Mode of arrival: ambulatory <EMILY Hennessy - Last Filed: 02/18/22 10:03> Limitations: no limitations <EMILY Hennessy Last Filed: 02/18/22 10:03> History of Present Illness HPI Narrative: Patient presents to the ED for hematuria and mild abdominal discomfort. Patient is being treated for recent UTI. Patient eloped before physical exam could be done. Rapid medical screening done <EMILY Hennessy Last Filed: 02/18/22 10:03> Related Data Home medications: Home Medications Medication Instructions Recorded Confirmed cetirizine 10 mg capsule (Zyrtec) 10 mg PO DAILY PRN 01/04/21 10/08/21 ibuprofen 200 mg tablet 800 mg PO DAILY PRN 02/08/21 10/08/21 multivit with minerals-iron 18 tab PO 07/16/21 10/08/21 mg-folic ac 400 mcg-vit K 25 mcg tablet (Adults Multivitamin) Previous Rx's Medication Instructions Recorded dicyclomine 10 mg capsule 10 mg PO TID 1 month #90 caps 09/05/21 polyethylene glycol 3350 17 17 g PO DAILY PRN constipation 09/19/21 gram/dose oral powder (Laxative #119 grams PEG 3350) blood pressure kit-extra large #1 ea 10/31/21 fluticasone propionate 50 2 spray intranasal DAILY #16 mL 11/07/21 mcg/actuation nasal spray,suspension trazodone 50 mg tablet 50 mg PO BEDTIME #60 tabs 11/08/21 folic acid 1 mg tablet 1 mg PO DAILY #90 tabs 12/04/21 lansoprazole 30 mg capsule,delayed 30 mg PO BID #60 caps 01/10/22 release cefuroxime axetil 250 mg tablet 250 mg PO BID 7 days #14 tabs 01/28/22 lorazepam 0.5 mg tablet (Ativan) 0.5 mg PO BID PRN anxiety 28 days 01/31/22 #42 tabs pantoprazole 40 mg tablet,delayed 40 mg PO BID GERD #90 tabs 02/06/22 release <EMILY Zhu - Last Filed: 02/17/22 11:57> Allergies/Adverse reactions: Allergies Allergy/AdvReac Type Severity Reaction Status Date / Time penicillin V Allergy Unknown unknown, Verified 01/31/22 15:04 patient was very young <EMILY Zhu - Last Filed: 02/17/22 11:57> Review of Systems Review of Systems: Hematuria. <EMILY Hennessy - Last Filed: 02/18/22 10:03> Yes all other systems are reviewed and are negative <EMILY Hennessy - Last Filed: 02/18/22 10:03> PMFSH Past Medical History Medical History: Medical History Chronic GERD COVID Diverticulitis Fatigue Hernia <EMILY Zhu - Last Filed: 02/17/22 11:57> Surgical History: Surgical History History of esophagogastroduodenoscopy (EGD) Hx of cholecystectomy Hx of colonoscopy <EMILY Zhu - Last Filed: 02/17/22 11:57> Family History Family History: Family History Father HTN (hypertension) Stroke Heart attack Mother Lung cancer Maternal Grandmother Lung cancer Other Substance use disorder <EMILY Zhu - Last Filed: 02/17/22 11:57> Social History Social History: Social History Housing: House Patient Tobacco Use Status: Current everyday Tobacco user Tobacco use type: Cigarette Cigarettes Per Day: 5 Smoked in Last 30 Days: No e-Cigarette/Vaping Use: Never Used Advance Directives: No Advance Directives Information Provided: No service: No Current occupational status: employed Current occupation: [employer] Current occupational exposures/hazards: No Cognitive needs: No Hearing needs: No Vision needs: Yes <EMILY Zhu - Last Filed: 02/17/22 11:57> Physical Exam Vital Signs: Vital Signs: Last Vital Signs Temp 98.1 F 02/17/22 11:50 Pulse 65 02/17/22 11:50 Resp 18 02/17/22 11:50 BP 132/95 H 02/17/22 11:50 Pulse Ox 99 02/17/22 11:50 O2 Del Method Simple Mask 02/17/22 11:50 BMI result Body Mass Index 37.7 <EMILY Zhu - Last Filed: 02/17/22 11:57> Vital Signs: Last Vital Signs Temp 98.1 F 02/17/22 11:50 Pulse 65 02/17/22 11:50 Resp 18 02/17/22 11:50 BP 132/95 H 02/17/22 11:50 Pulse Ox 99 02/17/22 11:50 O2 Del Method Simple Mask 02/17/22 11:50 BMI result Body Mass Index 37.7 <EMILY Hennessy - Last Filed: 02/18/22 10:03> Course Course Course Narrative: AZRA-12NOON - 47 yo male with hx GERD, diverticulitis, hx gastric ulcers, hemorrhoids, constipation, kidney stone & chronic abdominal pain who presents to the ER with generalized abdominal pain with continuing discomfort upon urination and constipation that were since for the last 2 days. Reports he was feeling a bit better after taking the antibiotics although he ended up getting COVID therefore he is unsure if the antibiotics completely help. Reports that he had to stop his PPI so the antibiotics to work well this is what his PCP told him apparently. Otherwise he denies any other symptoms complaints or concerns at this time. Plan: Will obtain labs, UA, CT scan abdomen pelvis with IV contrast. Patient will be sent back to the waiting room to be evaluated in the ED. <EMILY Zhu - Last Filed: 02/17/22 11:57> Reevaluation(s) Reevaluation #1: Patient eloped from the ER. Patient was called and informed of lab results and CT scan results. Patient also iformed of right pulmonary nodule which will need re-evaluation by primary care provider. Patient refused to return to the ED. <EMILY Hennessy - Last Filed: 02/18/22 10:03> Time: 19:03 <EMILY Hennessy - Last Filed: 02/18/22 10:03> Medical Decision Making Lab Data Result Diagrams: : 02/17/22 14:14 02/17/22 14:14 <EMILY Zhu - Last Filed: 02/17/22 11:57> Labs: Lab Results 02/17/22 02/17/22 02/17/22 Range/Units 14:14 14:14 14:14 WBC 5.0 (4.8-10.8) X10*3/uL RBC 4.49 L (4.60-5.80) X10*6/uL Hgb 13.8 L (14.0-18.0) g/dl Hct 41.4 L (42.0-52.0) % MCV 92.2 (80.0-98.0) fL MCH 30.7 (27.0-33.0) pg MCHC 33.3 (31.0-36.0) g/dl RDW 12.5 (11.0-16.0) % Plt Count 147 L (160-400) X10*3/uL MPV 8.6 L (9.4-12.4) fL Immature Gran % (Auto) 0.2 (0.0-0.4) % Neut % (Auto) 66.1 (45-73) % Lymph % (Auto) 21.7 (20-40) % [place] % (Auto) 7.6 (2-11) % Eos % (Auto) 3.4 (0-4) % Baso % (Auto) 1.0 (0-2) % Lymph # (Auto) 1.1 L (1.2-4.9) X10*3/uL [place] # (Auto) 0.4 (0.1-1.2) X10*3/uL Eos # (Auto) 0.2 (0.0-0.4) X10*3/uL Baso # (Auto) 0.1 (0.0-0.2) X10*3/uL Abs Immat Gran (auto) 0.01 (0.00-0.03) X10*3/uL Absolute Neuts (auto) 3.3 (2.0-8.3) x10*3/uL Absolute Nucleated RBC 0.000 (0.0-0.012) X10*3/uL Nucleated RBC % (auto) 0.0 (0.0-0.2) /100WBC PT 11.6 (10.0-13.1) SEC INR 1.0 (0.9-1.1) Sodium 139 (135-145) mmol/L Potassium 4.3 (3.3-5.1) mmol/L Chloride 105 (96-108) mmol/L Carbon Dioxide 27 (22-29) mmol/L Anion Gap 11 L (12-20) BUN 13 (9-16) mg/dL Creatinine 1.07 (0.5-1.4) mg/dL Estim Creat Clear Calc 120.5 Estimated GFR > 60 Random Glucose 92 (60-115) mg/dL Calcium 9.4 (8.4-10.2) mg/dL Magnesium 2.0 (1.6-2.6) mg/dL Total Bilirubin 0.4 (0.0-1.0) mg/dL AST 18 (5-37) U/L ALT 24 (0-40) U/L Alkaline Phosphatase 64 (39-117) U/L Total Protein 7.1 (6.5-8.0) g/dL Albumin 4.5 (3.5-5.0) g/dL Urine Color Urine Appearance Urine pH (5.0-9.0) Ur Specific [place] (1.005-1.025) Urine Protein (Neg-Trace) mg/dL Urine Glucose (UA) (Negative) mg/dL Urine Ketones (Negative) mg/dL Urine Blood (Negative) Urine Nitrite (Negative) Ur Leukocyte Esterase (Negative) 02/17/22 Range/Units 14:14 WBC (4.8-10.8) X10*3/uL RBC (4.60-5.80) X10*6/uL Hgb (14.0-18.0) g/dl Hct (42.0-52.0) % MCV (80.0-98.0) fL MCH (27.0-33.0) pg MCHC (31.0-36.0) g/dl RDW (11.0-16.0) % Plt Count (160-400) X10*3/uL MPV (9.4-12.4) fL Immature Gran % (Auto) (0.0-0.4) % Neut % (Auto) (45-73) % Lymph % (Auto) (20-40) % [place] % (Auto) (2-11) % Eos % (Auto) (0-4) % Baso % (Auto) (0-2) % Lymph # (Auto) (1.2-4.9) X10*3/uL [place] # (Auto) (0.1-1.2) X10*3/uL Eos # (Auto) (0.0-0.4) X10*3/uL Baso # (Auto) (0.0-0.2) X10*3/uL Abs Immat Gran (auto) (0.00-0.03) X10*3/uL Absolute Neuts (auto) (2.0-8.3) x10*3/uL Absolute Nucleated RBC (0.0-0.012) X10*3/uL Nucleated RBC % (auto) (0.0-0.2) /100WBC PT (10.0-13.1) SEC INR (0.9-1.1) Sodium (135-145) mmol/L Potassium (3.3-5.1) mmol/L Chloride (96-108) mmol/L Carbon Dioxide (22-29) mmol/L Anion Gap (12-20) BUN (9-16) mg/dL Creatinine (0.5-1.4) mg/dL Estim Creat Clear Calc Estimated GFR Random Glucose (60-115) mg/dL Calcium (8.4-10.2) mg/dL Magnesium (1.6-2.6) mg/dL Total Bilirubin (0.0-1.0) mg/dL AST (5-37) U/L ALT (0-40) U/L Alkaline Phosphatase (39-117) U/L Total Protein (6.5-8.0) g/dL Albumin (3.5-5.0) g/dL Urine Color Yellow Urine Appearance Clear Urine pH 6.0 (5.0-9.0) Ur Specific [place] 1.025 (1.005-1.025) Urine Protein Negative (Neg-Trace) mg/dL Urine Glucose (UA) Negative (Negative) mg/dL Urine Ketones Negative (Negative) mg/dL Urine Blood Negative (Negative) Urine Nitrite Negative (Negative) Ur Leukocyte Esterase Negative (Negative) <EMILY Zhu - Last Filed: 02/17/22 11:57> Lab Results 02/17/22 02/17/22 02/17/22 Range/Units 14:14 14:14 14:14 WBC 5.0 (4.8-10.8) X10*3/uL RBC 4.49 L (4.60-5.80) X10*6/uL Hgb 13.8 L (14.0-18.0) g/dl Hct 41.4 L (42.0-52.0) % MCV 92.2 (80.0-98.0) fL MCH 30.7 (27.0-33.0) pg MCHC 33.3 (31.0-36.0) g/dl RDW 12.5 (11.0-16.0) % Plt Count 147 L (160-400) X10*3/uL MPV 8.6 L (9.4-12.4) fL Immature Gran % (Auto) 0.2 (0.0-0.4) % Neut % (Auto) 66.1 (45-73) % Lymph % (Auto) 21.7 (20-40) % [place] % (Auto) 7.6 (2-11) % Eos % (Auto) 3.4 (0-4) % Baso % (Auto) 1.0 (0-2) % Lymph # (Auto) 1.1 L (1.2-4.9) X10*3/uL [place] # (Auto) 0.4 (0.1-1.2) X10*3/uL Eos # (Auto) 0.2 (0.0-0.4) X10*3/uL Baso # (Auto) 0.1 (0.0-0.2) X10*3/uL Abs Immat Gran (auto) 0.01 (0.00-0.03) X10*3/uL Absolute Neuts (auto) 3.3 (2.0-8.3) x10*3/uL Absolute Nucleated RBC 0.000 (0.0-0.012) X10*3/uL Nucleated RBC % (auto) 0.0 (0.0-0.2) /100WBC PT 11.6 (10.0-13.1) SEC INR 1.0 (0.9-1.1) Sodium 139 (135-145) mmol/L Potassium 4.3 (3.3-5.1) mmol/L Chloride 105 (96-108) mmol/L Carbon Dioxide 27 (22-29) mmol/L Anion Gap 11 L (12-20) BUN 13 (9-16) mg/dL Creatinine 1.07 (0.5-1.4) mg/dL Estim Creat Clear Calc 120.5 Estimated GFR > 60 Random Glucose 92 (60-115) mg/dL Calcium 9.4 (8.4-10.2) mg/dL Magnesium 2.0 (1.6-2.6) mg/dL Total Bilirubin 0.4 (0.0-1.0) mg/dL AST 18 (5-37) U/L ALT 24 (0-40) U/L Alkaline Phosphatase 64 (39-117) U/L Total Protein 7.1 (6.5-8.0) g/dL Albumin 4.5 (3.5-5.0) g/dL Urine Color Urine Appearance Urine pH (5.0-9.0) Ur Specific [place] (1.005-1.025) Urine Protein (Neg-Trace) mg/dL Urine Glucose (UA) (Negative) mg/dL Urine Ketones (Negative) mg/dL Urine Blood (Negative) Urine Nitrite (Negative) Ur Leukocyte Esterase (Negative) 02/17/22 Range/Units 14:14 WBC (4.8-10.8) X10*3/uL RBC (4.60-5.80) X10*6/uL Hgb (14.0-18.0) g/dl Hct (42.0-52.0) % MCV (80.0-98.0) fL MCH (27.0-33.0) pg MCHC (31.0-36.0) g/dl RDW (11.0-16.0) % Plt Count (160-400) X10*3/uL MPV (9.4-12.4) fL Immature Gran % (Auto) (0.0-0.4) % Neut % (Auto) (45-73) % Lymph % (Auto) (20-40) % [place] % (Auto) (2-11) % Eos % (Auto) (0-4) % Baso % (Auto) (0-2) % Lymph # (Auto) (1.2-4.9) X10*3/uL [place] # (Auto) (0.1-1.2) X10*3/uL Eos # (Auto) (0.0-0.4) X10*3/uL Baso # (Auto) (0.0-0.2) X10*3/uL Abs Immat Gran (auto) (0.00-0.03) X10*3/uL Absolute Neuts (auto) (2.0-8.3) x10*3/uL Absolute Nucleated RBC (0.0-0.012) X10*3/uL Nucleated RBC % (auto) (0.0-0.2) /100WBC PT (10.0-13.1) SEC INR (0.9-1.1) Sodium (135-145) mmol/L Potassium (3.3-5.1) mmol/L Chloride (96-108) mmol/L Carbon Dioxide (22-29) mmol/L Anion Gap (12-20) BUN (9-16) mg/dL Creatinine (0.5-1.4) mg/dL Estim Creat Clear Calc Estimated GFR Random Glucose (60-115) mg/dL Calcium (8.4-10.2) mg/dL Magnesium (1.6-2.6) mg/dL Total Bilirubin (0.0-1.0) mg/dL AST (5-37) U/L ALT (0-40) U/L Alkaline Phosphatase (39-117) U/L Total Protein (6.5-8.0) g/dL Albumin (3.5-5.0) g/dL Urine Color Yellow Urine Appearance Clear Urine pH 6.0 (5.0-9.0) Ur Specific [place] 1.025 (1.005-1.025) Urine Protein Negative (Neg-Trace) mg/dL Urine Glucose (UA) Negative (Negative) mg/dL Urine Ketones Negative (Negative) mg/dL Urine Blood Negative (Negative) Urine Nitrite Negative (Negative) Ur Leukocyte Esterase Negative (Negative) <EMILY Hennessy - Last Filed: 02/18/22 10:03> Discharge Plan Discharge Clinical Impression: Constipation <EMILY Zhu - Last Filed: 02/17/22 11:57> Patient Disposition: Elopement <EMILY Zhu - Last Filed: 02/17/22 11:57> Instructions: Constipation (ED) <EMILY Zhu - Last Filed: 02/17/22 11:57> Prescriptions: No Action fluticasone propionate 50 mcg/actuation spray,suspension 2 spray intranasal DAILY Qty: 16 0RF trazodone 50 mg tablet 50 mg PO BEDTIME MDD two tabs may repeat if needed Qty: 60 2RF folic acid 1 mg tablet 1 mg PO DAILY Qty: 90 3RF lansoprazole 30 mg capsule,delayed release(DR/EC) 30 mg PO BID Qty: 60 2RF pantoprazole 40 mg tablet,delayed release (DR/EC) 40 mg PO BID Qty: 90 1RF cefuroxime axetil 250 mg tablet 250 mg PO BID 7 Days Qty: 14 0RF Zyrtec 10 mg capsule 10 mg PO DAILY PRN polyethylene glycol 3350 [Laxative PEG 3350] 17 gram/dose powder 17 g PO DAILY PRN (Reason: constipation) Qty: 119 3RF ibuprofen 200 mg tablet 800 mg PO DAILY PRN dicyclomine 10 mg capsule 10 mg PO TID 30 Days Qty: 90 2RF (DME) blood pressure kit-extra large Kit See Rx Instructions .Route Qty: 1 0RF Rx Instructions: As directed lorazepam [Ativan] 0.5 mg tablet 0.5 mg PO BID PRN (Reason: anxiety) 28 Days Qty: 42 0RF Rx Instructions: pt to take one daily as needed and has an extra tab every two days for increased anxiety of Adults Multivitamin 18 mg iron-400 mcg-25 mcg tablet PO <EMILY Zhu - Last Filed: 02/17/22 11:57> Discharge Date/Time: 02/18/22 05:40 <EMILY Zhu - Last Filed: 02/17/22 11:57>
[2022-02-17 14:19] LABS: MANUAL DIFF FLAG NO
[2022-02-17 14:22] LABS: Basophils Absolute Auto 0.1 X10*3/uL (0.0-0.2); Eosinophils Absolute Auto 0.2 X10*3/uL (0.0-0.4); Eosinophils Percent Auto 3.4 % (0-4); Hematocrit 41.4 % (42.0-52.0); Hemoglobin 13.8 g/dl (14.0-18.0); Imm Gran Abs Auto 0.01 X10*3/uL (0.00-0.03); Imm Gran Pct Auto 0.2 % (0.0-0.4); Lymphocytes Absolute Auto 1.1 X10*3/uL (1.2-4.9); Lymphocytes Percent Auto 21.7 % (20-40); Mean Corpuscular HGB Conc 33.3 g/dl (31.0-36.0); Mean Corpuscular Hemoglobin 30.7 pg (27.0-33.0); Mean Corpuscular Volume 92.2 fL (80.0-98.0); Mean Platelet Volume 8.6 fL (9.4-12.4); Monocytes Absolute Auto 0.4 X10*3/uL (0.1-1.2); Monocytes Percent Auto 7.6 % (2-11); Neutrophils Absolute Auto 3.3 x10*3/uL (2.0-8.3); Neutrophils Percent Auto 66.1 % (45-73); Platelet Count 147 X10*3/uL (160-400); Red Blood Count 4.49 X10*6/uL (4.60-5.80); Red Cell Distribution Width 12.5 % (11.0-16.0)
[2022-02-17 14:24] LABS: Appearance Urine Clear; Color Urine Yellow; Glucose Urine UA Negative (Negative); Leukocyte Esterase Urine Negative (Negative); Nitrite Urine Negative (Negative); Specific Gravity - Urine 1.025 (1.005-1.025); Urine Blood Negative (Negative); Urine Ketones Negative (Negative); Urine Protein Negative (Neg-Trace)
[2022-02-17 14:27] LABS: Prothrombin Time 11.6 SEC (10.0-13.1)
[2022-02-17 14:37] LABS: Alanine Aminotransferase 24 U/L (0-40); Albumin Level 4.5 g/dL (3.5-5.0); Alkaline Phosphatase 64 U/L (39-117); Anion Gap 11 (12-20); Aspartate Amino Transferase 18 U/L (5-37); Bilirubin Total 0.4 mg/dL (0.0-1.0); Blood Urea Nitrogen 13 mg/dL (9-16); Calcium 9.4 mg/dL (8.4-10.2); Carbon Dioxide 27 mmol/L (22-29); Chloride 105 mmol/L (96-108); Creatinine Clr Calc Pharmacy 120.5; Estimated Glomerular Filt Rate > 60; Glucose Random 92 mg/dL (60-115); Potassium 4.3 mmol/L (3.3-5.1); Sodium 139 mmol/L (135-145); Total Protein 7.1 g/dL (6.5-8.0)
== END 2022-02-18 05:40 | disposition left against medical advice (07) ==
PROVIDERS: Physician Assistant Medical; Emergency Provider Emergency Medicine; PCP Hospitalist
DX: N39.0 Urinary tract infection, site not specified (principal); R31.9 Hematuria, unspecified; R10.9 Unspecified abdominal pain; Z79.899 Other long term (current) drug therapy
CPT/HCPCS: 36415; 74176; 80053; 81003; 83735; 85025; 85610; 99283

== ENCOUNTER 2022-04-05 10:13 | Outpatient (REF) | payer OTHER, MEDICAID, SELFPAY ==
[2022-04-05 11:13] LABS: MANUAL DIFF FLAG NO
[2022-04-05 11:40] LABS: Basophils Absolute Auto 0.1 X10*3/uL (0.0-0.2); Basophils Percent Auto 0.8 % (0-2); Eosinophils Absolute Auto 0.1 X10*3/uL (0.0-0.4); Eosinophils Percent Auto 2.1 % (0-4); Hematocrit 42.8 % (42.0-52.0); Hemoglobin 14.5 g/dl (14.0-18.0); Imm Gran Abs Auto 0.02 X10*3/uL (0.00-0.03); Imm Gran Pct Auto 0.3 % (0.0-0.4); Lymphocytes Absolute Auto 1.2 X10*3/uL (1.2-4.9); Lymphocytes Percent Auto 19.7 % (20-40); Mean Corpuscular HGB Conc 33.9 g/dl (31.0-36.0); Mean Corpuscular Volume 91.5 fL (80.0-98.0); Mean Platelet Volume 8.8 fL (9.4-12.4); Monocytes Absolute Auto 0.4 X10*3/uL (0.1-1.2); Monocytes Percent Auto 6.7 % (2-11); Neutrophils Absolute Auto 4.4 x10*3/uL (2.0-8.3); Neutrophils Percent Auto 70.4 % (45-73); Platelet Count 208 X10*3/uL (160-400); Red Blood Count 4.68 X10*6/uL (4.60-5.80); Red Cell Distribution Width 12.8 % (11.0-16.0); White Blood Count 6.2 X10*3/uL (4.8-10.8)
[2022-04-05 12:18] LABS: Anion Gap 15 (12-20); Blood Urea Nitrogen 15 mg/dL (9-16); Calcium 9.5 mg/dL (8.4-10.2); Carbon Dioxide 22 mmol/L (22-29); Chloride 104 mmol/L (96-108); Estimated Glomerular Filt Rate > 60; Glucose Random 84 mg/dL (60-115); Potassium 4.3 mmol/L (3.3-5.1); Sodium 137 mmol/L (135-145)
[2022-04-05 12:28] LABS: Erythrocyte Sedimentation Rate 16 MM/HR (0-15)
[2022-04-06 14:23] LABS: IgA 434 mg/dL (47-310); IgG 1190 mg/dL (600-1640); IgM 69 mg/dL (50-300)
== END 2022-04-05 10:14 | disposition home or self-care (01) ==
LOC: HO.LAB 10:13
PROVIDERS: PCP Hospitalist; Visit Provider Hospitalist
DX: J45.909 Unspecified asthma, uncomplicated (principal); R91.1 Solitary pulmonary nodule; T78.40XA Allergy, unspecified, initial encounter
CPT/HCPCS: 36415; 80048; 82784; 82785; 85025; 85652; 86003

== ENCOUNTER 2022-04-18 12:51 | Outpatient (REF) | payer OTHER, MEDICAID, SELFPAY ==
--- NOTE | 2022-04-18 16:07 | PFT_ITS ---
INDICATION: Dyspnea. SPIROMETRY: FEV1 to FVC of 84% with an FEV1 of 4.49 L, which is 102% predicted and an FVC of 5.32 L, which is 94% predicted. No significant response to bronchodilator is noted. Maximum voluntary ventilation 91% of predicted. LUNG VOLUMES: Total lung capacity 94% predicted with an expiratory residual volume of 26% predicted. DIFFUSION CAPACITY: DLCO of 83% predicted. COMPARISONS: None. INTERPRETATION: No obstructive, nor restrictive ventilatory defects identified. No significant response to bronchodilators noted. Normal maximum voluntary ventilation. The lung volumes are normal except for decrease in the expiratory residual volume secondary to an elevated BMI. Diffusion capacity is low normal. Clinical correlation warranted. Merrick Ceja MD MR/MODL / [id number]
== END 2022-04-18 12:52 | disposition home or self-care (01) ==
LOC: HO.RESP 12:51
PROVIDERS: PCP Hospitalist; Visit Provider Hospitalist
DX: R91.1 Solitary pulmonary nodule (principal)
CPT/HCPCS: 94060; 94727; 94729

== ENCOUNTER 2022-04-24 08:07 | Outpatient (REF) | payer OTHER, SELFPAY ==
--- NOTE | ~2022-04-24 | CT_ITS ---
EXAMINATION: CT CHEST WITH CONTRAST CLINICAL INFORMATION: Follow-up pulmonary nodule seen on abdominal and pelvic CT scan COMPARISON: Abdominal and pelvic CT scans JanuaryJanuary 2022 TECHNIQUE: Multidetector volumetric CT imaging of the chest was obtained after the administration of 65 mL of Omnipaque 350 intravenous contrast without immediate adverse reactions. Axial MIP volume rendering provided. Sagittal and coronal reformatted images were obtained. This CT examination was performed using dose optimization techniques as appropriate, variously including the following: *Automated exposure control *Adjustment of mA and/or kV according to patient size (this includes techniques or standardized protocols for targeted exams where dose is matched to indication/reason for exam; i.e. extremities or head) *Use of iterative reconstruction technique DLP: 294 mGy-cm FINDINGS: LUNGS: 4 mm slightly heterogeneous posterior segment right upper lobe nodule axial image 195 series 5. Scarring or subsegmental atelectasis in the superior segment of the left lower lobe nodule axial image 202 series 5. 8 mm right lower lobe nodule axial image 4:30 series 5. MEDIASTINUM: The mediastinum is normal. No coronary artery calcification. PLEURA: There is no pleural effusion. No pleural mass or thickening. AXILLA: No lymphadenopathy. UPPER ABDOMEN: Fatty liver. The gallbladder has been removed. OSSEOUS STRUCTURES: Mild degenerative changes of the spine. CT/CT chest w IV con IMPRESSION: Pulmonary nodules largest measuring 8 mm in the right lower lobe. According to the UPDATED 2017 Fleischner Society recommendations, the advised follow-up imaging for 6-8 mm solid nodule for low and high risk patients: 6-12 and 18-[address] follow-up recommended. Fleischner guidelines were followed.
[2022-04-24] MEDS: iohexoL 350 MG/ML 100 ML INFUS..BTL IV (08:38)
== END 2022-04-24 08:08 | disposition home or self-care (01) ==
LOC: HO.CT 08:07
PROVIDERS: PCP Hospitalist; Visit Provider Hospitalist
DX: R91.1 Solitary pulmonary nodule (principal)
CPT/HCPCS: 71260; Q9967

== ENCOUNTER → 2022-04-30 10:04 | Outpatient (BNVA) | payer OTHER, MEDICAID, SELFPAY | PROVIDERS: PCP Hospitalist; Visit Provider Hospitalist | DX: R91.1 Solitary pulmonary nodule (principal); J45.909 Unspecified asthma, uncomplicated; T78.40XA Allergy, unspecified, initial encounter ==

== ENCOUNTER → 2022-05-06 10:42 | Outpatient (BNVA) | payer OTHER, SELFPAY | PROVIDERS: PCP Hospitalist; Visit Provider Internal Medicine Gastroenterology | DX: K57.92 Diverticulitis of intestine, part unspecified, without perforation or abscess without bleeding (principal); K59.00 Constipation, unspecified | CPT/HCPCS: 99212 ==

== ENCOUNTER → 2022-05-27 09:59 | Outpatient (REF) | payer OTHER, SELFPAY | LOC: HO.SL 09:59 | PROVIDERS: Visit Provider Hospitalist | DX: G47.33 Obstructive sleep apnea (adult) (pediatric) (principal); R06.83 Snoring | CPT/HCPCS: 95806 ==

== ENCOUNTER → 2022-07-10 10:05 | Outpatient (BNVA) | payer OTHER, SELFPAY | PROVIDERS: PCP Hospitalist; Visit Provider Hospitalist | DX: R91.1 Solitary pulmonary nodule (principal); J45.909 Unspecified asthma, uncomplicated; T78.40XA Allergy, unspecified, initial encounter; G47.33 Obstructive sleep apnea (adult) (pediatric) ==

== ENCOUNTER 2022-07-10 10:42 | Outpatient (REF) | payer OTHER, SELFPAY ==
[2022-07-10 14:27] LABS: Influenza A PCR NEGATIVE (Negative); Influenza B PCR NEGATIVE (Negative); Resp Syncy Virus RNA Qual PCR NEGATIVE (Negative); SARS COV2 PCR INHOUSE NEGATIVE (Negative)
== END 2022-07-10 10:43 | disposition home or self-care (01) ==
LOC: HO.LNP 10:42
PROVIDERS: Visit Provider Hospitalist
DX: Z20.822 Contact with and (suspected) exposure to COVID-19 (principal); R50.9 Fever, unspecified
CPT/HCPCS: 0241U

== ENCOUNTER 2022-08-14 09:57 | Emergency (ER) | payer OTHER, SELFPAY ==
--- NOTE | ~2022-08-14 | CT_ITS ---
EXAMINATION: CT ABDOMEN AND PELVIS WITH CONTRAST CLINICAL INFORMATION: 47-year-old male with severe abdominal pain COMPARISON: 02/17/2022 TECHNIQUE: Multidetector volumetric images were obtained from the superior aspect of the liver through the pubic symphysis following administration 85 mL of Omnipaque 350 intravenous contrast. Sagittal and coronal reformatted images were obtained on the technologist's workstation. Oral contrast: No This CT examination was performed using dose optimization techniques as appropriate, variously including the following: *Automated exposure control *Adjustment of mA and/or kV according to patient size (this includes techniques or standardized protocols for targeted exams where dose is matched to indication/reason for exam; i.e. extremities or head) *Use of iterative reconstruction technique DLP: 935 mGy-cm FINDINGS: LUNG BASES: The visualized lung bases are unremarkable. LIVER, GALLBLADDER, AND BILIARY TREE: The liver is normal in size, shape, and attenuation. No focal hepatic lesion or biliary ductal dilatation is present. Gallbladder is surgically absent. PANCREAS: Unremarkable. SPLEEN: Unremarkable. ADRENAL GLANDS: Unremarkable. KIDNEYS AND URETERS: The kidneys are normal in size, shape, and attenuation. No hydronephrosis, hydroureter, seen. There is punctate calculus in the collecting system of left kidney No perinephric stranding. BLADDER: Unremarkable. GASTROINTESTINAL TRACT: The small and large bowel are unremarkable. The appendix is unremarkable. There are changes of diverticulosis without diverticulitis with mild haziness of the mesentery surrounding the entire descending colon with mild wall thickening, some: Findings suggestive for colitis ABDOMINAL WALL: There is fat-containing right inguinal hernia. LYMPH NODES: Normal. VASCULAR: Unremarkable. PELVIC VISCERA: Unremarkable. OSSEOUS STRUCTURES: Unremarkable. CT/CT abdomen pelvis w IV con IMPRESSION: 1. Mild colitis of the descending colon. 2. Diverticulosis without diverticulitis. 3. Status post cholecystectomy. 4. Fat-containing right inguinal hernia. Fleischner guidelines were followed.
[2022-08-14 10:04] VITALS: BP 129/82; PULSE 65; RESP 16; TEMP 36.4; O2SAT 100; BMI 35.0
--- NOTE | 2022-08-14 10:17 | ECG_ITS ---
Test Reason : syncope Blood Pressure : / mmHG Vent. Rate : 069 BPM Atrial Rate : 069 BPM P-R Int : 144 ms QRS Dur : 096 ms QT Int : 384 ms P-R-T Axes : 027 012 026 degrees QTc Int : 411 ms Normal sinus rhythm with sinus arrhythmia Normal ECG No previous ECGs available Referred By: Yoel West Electronically Signed By:BOOM REYNOLDS MD
[2022-08-14 10:36] LABS: MANUAL DIFF FLAG NO
[2022-08-14 10:37] LABS: Basophils Percent Auto 0.4 % (0-2); Eosinophils Absolute Auto 0.1 X10*3/uL (0.0-0.4); Eosinophils Percent Auto 0.9 % (0-4); Hematocrit 42.1 % (42.0-52.0); Hemoglobin 14.6 g/dl (14.0-18.0); Imm Gran Abs Auto 0.02 X10*3/uL (0.00-0.03); Imm Gran Pct Auto 0.3 % (0.0-0.4); Lymphocytes Absolute Auto 0.8 X10*3/uL (1.2-4.9); Lymphocytes Percent Auto 11.2 % (20-40); Mean Corpuscular HGB Conc 34.7 g/dl (31.0-36.0); Mean Corpuscular Hemoglobin 31.2 pg (27.0-33.0); Mean Platelet Volume 8.7 fL (9.4-12.4); Monocytes Absolute Auto 0.4 X10*3/uL (0.1-1.2); Neutrophils Absolute Auto 5.5 x10*3/uL (2.0-8.3); Neutrophils Percent Auto 81.2 % (45-73); Platelet Count 167 X10*3/uL (160-400); Red Blood Count 4.68 X10*6/uL (4.60-5.80); Red Cell Distribution Width 12.8 % (11.0-16.0); White Blood Count 6.8 X10*3/uL (4.8-10.8)
[2022-08-14 10:56] LABS: Alanine Aminotransferase 37 U/L (0-40); Albumin Level 4.7 g/dL (3.5-5.0); Alkaline Phosphatase 71 U/L (39-117); Anion Gap 14 (12-20); Aspartate Amino Transferase 28 U/L (5-37); Bilirubin Total 1.3 mg/dL (0.0-1.0); Blood Urea Nitrogen 14 mg/dL (9-16); Calcium 10.1 mg/dL (8.4-10.2); Carbon Dioxide 23 mmol/L (22-29); Chloride 108 mmol/L (96-108); Estimated Glomerular Filt Rate > 60; Glucose Random 103 mg/dL (60-115); Potassium 4.2 mmol/L (3.3-5.1); Sodium 141 mmol/L (135-145)
[2022-08-14 12:48] VITALS: BP 120/84; PULSE 66; RESP 16; TEMP 36.9; O2SAT 98
[2022-08-14] MEDS: iohexoL 350 MG/ML 100 ML INFUS..BTL IV (13:58)
[2022-08-14 14:06] LABS: Appearance Urine Clear; Color Urine Yellow; Glucose Urine UA Negative (Negative); Leukocyte Esterase Urine Trace (Negative); Nitrite Urine Negative (Negative); PH >= 9.0 (5.0-9.0); UMIC TRIGGER UACC YES; Urine Blood Negative (Negative); Urine Ketones 40 mg/dL (Negative); Urine Protein 30 (1+) mg/dL (Neg-Trace)
[2022-08-14 14:14] LABS: Bacteria Urine None Seen (None Seen); Hyaline Casts Urine 0-2 /LPF (0-2); RBC Urine 0-2 /HPF (0-2); Squamous Epithelial Cell Urine 0-2 /HPF (0-2); WBC Urine 0-5 /HPF (0-5)
--- NOTE | 2022-08-14 14:20 | ED_ITS ---
HPI - Abdominal Pain General Chief Complaint: Abdominal Pain Stated Complaint: sweats, vomiting, collapsed last night Time Seen by Provider: 08/14/22 12:35 Source: patient Mode of arrival: ambulatory Limitations: no limitations History of Present Illness HPI narrative: Patient presents with severe intermittent lower abdominal pain. Symptoms started last night. There is no clear relieving or exacerbating features. Patient reports intermittent sharp left lower quadrant abdominal pain. The pain does not radiate. It is associated with nausea, vomiting. He also reports constipation. Denies any blood in stool or vomitus. Patient has had some of these symptoms previously for which he is followed by gastroenterology patient reports having sat in the bathroom for most the night with his symptoms and had multiple near syncopal episodes associated with the pain. Patient denies any fevers or chills. Denies any urinary frequency, urgency or dysuria. Patient had no prior treatment. Related Data Home Medications Medication Instructions Recorded Confirmed pantoprazole 20 mg tablet,delayed 20 mg PO DAILY 07/10/22 release Previous Rx's Medication Instructions Recorded blood pressure kit-extra large #1 ea 10/31/21 fluticasone propionate 50 2 spray intranasal DAILY #16 mL 11/07/21 mcg/actuation nasal spray,suspension lorazepam 0.5 mg tablet (Ativan) 0.5 mg PO BID PRN anxiety 28 days 03/26/22 #42 tabs trazodone 50 mg tablet 50 mg PO BEDTIME #60 tabs 03/26/22 linaclotide 145 mcg capsule 145 mcg PO DAILY #30 caps 05/06/22 levofloxacin 500 mg tablet 500 mg PO DAILY 10 days #10 tabs 07/10/22 Symbicort 80 mcg-4.5 mcg/actuation 2 puff PO BID #10.2 grams 07/22/22 HFA aerosol inhaler (budesonide-formoterol) amoxicillin 875 mg-potassium 1 tab PO Q8H 10 days #30 tabs 08/14/22 clavulanate 125 mg tablet dicyclomine 20 mg tablet 20 mg PO QID Abdominal discomfort 08/14/22 #20 tabs Allergies Allergy/AdvReac Type Severity Reaction Status Date / Time penicillin V Allergy Unknown unknown, Verified 08/14/22 10:04 patient was very young Review of Systems Review of Systems CONSTITUTIONAL: Denies weight loss, fever and chills. HEENT: Denies changes in vision and hearing. RESPIRATORY: Denies SOB and cough. CV: Denies palpitations no CP. GI: See HPI : Denies dysuria and urinary frequency. MSK: Denies myalgia and joint pain. SKIN: Denies rash and pruritus. NEUROLOGICAL: Denies headache + syncope. PSYCHIATRIC: Denies recent changes in mood. Denies anxiety and depression. All other ROS are negative unless in HPI [facility] Past Medical History Medical History Asthma Chronic GERD COVID Diverticulitis Fatigue Fever Hernia SKYLER (obstructive sleep apnea) Surgical History History of esophagogastroduodenoscopy (EGD) Hx of cholecystectomy Hx of colonoscopy Family History Family History Father HTN (hypertension) Stroke Heart attack Mother Lung cancer Maternal Grandmother Lung cancer Other Substance use disorder Social History Social History Housing: House Patient Tobacco Use Status: Former Tobacco user Tobacco use type: Cigarette e-Cigarette/Vaping Use: Never Used Advance Directives: No Advance Directives Information Provided: No service: No Current occupational status: employed 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 Current occupational exposures/hazards: No Cognitive needs: No Hearing needs: No Vision needs: Yes Physical Exam ED Vital Signs: Vital Signs - 24 hr 08/14/22 10:04 08/14/22 12:48 Temperature 97.5 F 98.5 F Pulse Rate 65 66 Respiratory Rate 16 16 Blood Pressure 129/82 120/84 Pulse Oximetry 100 98 Oxygen Delivery Method Room Air Room Air BMI result Body Mass Index 35.0 GEN: Well developed, no acute distress, alert, oriented HEENT: Normocephalic, atraumatic, normal external ears, nose appears normal, no oropharyngeal edema or exudates Eyes: Normal to appearance Neck: Supple, no lymphadenopathy Respiratory: Talks in complete sentences, no respiratory distress, clear to auscultation bilaterally Cardiovascular: Regular rate and rhythm, no murmurs rubs or gallops Abdomen: Soft, nontender, nondistended, no guarding, no rebound Back: No CVA tenderness Extremities: No clubbing cyanosis or edema Neurologic: No focal neurologic deficits, cranial nerves 2-12 intact, strength is 5/5 bilaterally Skin: No rash Course Course Course Narrative: The workup is complete. Patient has no elevated white blood cell count but he does have a slight left shift. Chemistry panels unremarkable. There is no evidence of a urinary tract infection. Patient did have a CT scan which demonstrates mild colitis. This could be inflammatory or infectious in etiology. Will re-evaluate the patient to determine appropriate disposition at this time. Reevaluation(s) Reevaluation #1: Treat patient with Augmentin. Patient denies a history of penicillin allergy. He reports that his father had an allergy and he has never had penicillin. He would rather be tested in try the same antibiotics he has been on before. Patient will be observed for couple of hours preceding oral dose. Time: 14:52 Medical Decision Making Medical Decision Making [facility] Narrative: Patient's symptoms are not typical for emergent causes of abdominal pain such as appendicitis, aortic aneurysm, biliary disease, small-bowel obstruction, mesenteric ischemia, serious intra-abdominal bacterial illness. However, patient may in fact have diverticulitis or mild colitis. He has no rebound or guarding. Doubt surgical abdomen. At this time, will order routine laboratory testing, CT scan of the abdomen pelvis to rule out a broad differential diagnosis. Patient receive IV fluids, antiemetics, analgesia and frequent rechecks. Differential Diagnosis Differential Diagnoses: The differential diagnosis associated with the pres entation includes (Abdominal pain, diverticulitis, colitis, IBS, IBD, bacterial overgrowth, anxiety) Admission/Observation Consideration of admission/observation: Escalation of care including admission/observation considered Lab Data [facility] Lab Attestation statement: I reviewed the patient's lab results. 08/14/22 10:31 08/14/22 10:31 Labs: Lab Results 08/14/22 08/14/22 08/14/22 Range/Units 10:31 10:31 13:57 WBC 6.8 (4.8-10.8) X10*3/uL RBC 4.68 (4.60-5.80) X10*6/uL Hgb 14.6 (14.0-18.0) g/dl Hct 42.1 (42.0-52.0) % MCV 90.0 (80.0-98.0) fL MCH 31.2 (27.0-33.0) pg MCHC 34.7 (31.0-36.0) g/dl RDW 12.8 (11.0-16.0) % Plt Count 167 (160-400) X10*3/uL MPV 8.7 L (9.4-12.4) fL Immature Gran % (Auto) 0.3 (0.0-0.4) % Neut % (Auto) 81.2 H (45-73) % Lymph % (Auto) 11.2 L (20-40) % [place] % (Auto) 6.0 (2-11) % Eos % (Auto) 0.9 (0-4) % Baso % (Auto) 0.4 (0-2) % Lymph # (Auto) 0.8 L (1.2-4.9) X10*3/uL [place] # (Auto) 0.4 (0.1-1.2) X10*3/uL Eos # (Auto) 0.1 (0.0-0.4) X10*3/uL Baso # (Auto) 0.0 (0.0-0.2) X10*3/uL Abs Immat Gran (auto) 0.02 (0.00-0.03) X10*3/uL Absolute Neuts (auto) 5.5 (2.0-8.3) x10*3/uL Absolute Nucleated RBC 0.000 (0.0-0.012) X10*3/uL Nucleated RBC % (auto) 0.0 (0.0-0.2) /100WBC Sodium 141 (135-145) mmol/L Potassium 4.2 (3.3-5.1) mmol/L Chloride 108 (96-108) mmol/L Carbon Dioxide 23 (22-29) mmol/L Anion Gap 14 (12-20) BUN 14 (9-16) mg/dL Creatinine 1.24 (0.5-1.4) mg/dL Estim Creat Clear Calc 100.0 Estimated GFR > 60 Random Glucose 103 (60-115) mg/dL Calcium 10.1 D (8.4-10.2) mg/dL Total Bilirubin 1.3 H (0.0-1.0) mg/dL AST 28 (5-37) U/L ALT 37 (0-40) U/L Alkaline Phosphatase 71 (39-117) U/L Total Protein 8.0 (6.5-8.0) g/dL Albumin 4.7 (3.5-5.0) g/dL Urine Color Yellow Urine Appearance Clear Urine pH >= 9.0 (5.0-9.0) Ur Specific [place] 1.020 (1.005-1.025) Urine Protein 30 (1+) H (Neg-Trace) mg/dL Urine Glucose (UA) Negative (Negative) mg/dL Urine Ketones 40 (Negative) mg/dL Urine Blood Negative (Negative) Urine Nitrite Negative (Negative) Ur Leukocyte Esterase Trace H (Negative) Urine RBC 0-2 (0-2) /HPF Urine WBC 0-5 (0-5) /HPF Ur Squamous Epith Cells 0-2 (0-2) /HPF Urine Bacteria None Seen (None Seen) Hyaline Casts 0-2 (0-2) /LPF Independent Interpretation I performed an independent interpretation of an: EKG (Normal sinus rhythm heart rate 69, nonspecific T-wave changes, no acute ST elevations depressions, normal intervals) and CT Scan (Abdomen pelvis: Mild inflammatory changes on the left abdominal area) Radiology Impression Discussion of test interpretation with radiology: I have reviewed the radiologist's reading. Radiologist Impression: CT/CT abdomen pelvis w IV con IMPRESSION: 1.? Mild colitis of the descending colon. 2.? Diverticulosis without diverticulitis. 3.? Status post cholecystectomy. 4.? Fat-containing right inguinal hernia. ? Fleischner guidelines were followed. Dictated By: Deidre Delacruz MD Signed By: <Electronically signed by Deidre Delacruz MD in OV> 08/14/22 1415 External Record Review External record reviewed: Office record Tests considered The following testing was considered but not selected: Ultrasound abdomen Prescription Management I considered prescription management with: Pain Medication Chronic Conditions Patient?s care impacted by: Other (Chronic abdominal pain) Medications Administered Discontinued Medications Generic Name Dose Route Start Last Admin Trade Name Freq PRN Reason Stop Dose Admin Iohexol 100 ml 08/14/22 13:57 08/14/22 13:58 Iohexol 350 Mg/Ml 100 Ml Infus..Btl IV 08/14/22 13:58 85 ml ONCE ONE Administration Discharge Plan Discharge Clinical Impression: Abdominal pain, Acute colitis Patient Disposition: Home, Self-Care Instructions: Abdominal Pain (ED), Colitis (ED) Prescriptions: New amoxicillin-pot clavulanate 875-125 mg tablet 1 tab PO Q8H 10 Days Qty: 30 0RF dicyclomine 20 mg tablet 20 mg PO QID Qty: 20 0RF No Action fluticasone propionate 50 mcg/actuation spray,suspension 2 spray intranasal DAILY Qty: 16 0RF lorazepam [Ativan] 0.5 mg tablet 0.5 mg PO BID PRN (Reason: anxiety) 28 Days Qty: 42 0RF Rx Instructions: pt to take one daily as needed and has an extra tab every two days for increased anxiety of trazodone 50 mg tablet 50 mg PO BEDTIME MDD two tabs may repeat if needed Qty: 60 2RF budesonide-formoterol [Symbicort] 80-4.5 mcg/actuation HFA aerosol inhaler 2 puff PO BID Qty: 10.2 2RF (DME) blood pressure kit-extra large Kit See Rx Instructions .Route Qty: 1 0RF Rx Instructions: As directed linaclotide 145 mcg capsule 145 mcg PO DAILY Qty: 30 1RF pantoprazole 20 mg tablet,delayed release (DR/EC) 20 mg PO DAILY levofloxacin 500 mg tablet 500 mg PO DAILY 10 Days Qty: 10 0RF Referrals: Madeline Pascual NP [Primary Care Provider] - 5 days
[2022-08-14] MEDS: Pantoprazole Sodium 40 MG/10 ML VIAL 80 MG IVPUSH (15:03)
[2022-08-14] MEDS: Ketorolac Tromethamine 15 MG/ML VIAL IVPUSH (15:04)
[2022-08-14] MEDS: Amoxicillin/Potassium Clav 875 MG TABLET PO (15:04)
[2022-08-14] MEDS: ondansetron HCL 4 MG/2 ML VIAL IVPUSH (15:04)
[2022-08-14 15:10] VITALS: BP 129/89; PULSE 71; RESP 16; TEMP 36.9; O2SAT 98
== END 2022-08-14 16:09 | disposition home or self-care (01) ==
PROVIDERS: Emergency Provider Emergency Medicine; PCP Hospitalist
DX: K52.9 Noninfective gastroenteritis and colitis, unspecified (principal); R10.32 Left lower quadrant pain
CPT/HCPCS: 36415; 74177; 80053; 81001; 85025; 93005; 96374; 96375; 99284; 99285; J1885; J2405; Q9967

== ENCOUNTER 2022-10-22 10:03 | Outpatient (REF) | payer OTHER, SELFPAY ==
[2022-10-22 11:10] LABS: MANUAL DIFF FLAG NO
[2022-10-22 11:40] LABS: Basophils Percent Auto 0.8 % (0-2); Eosinophils Absolute Auto 0.1 X10*3/uL (0.0-0.4); Eosinophils Percent Auto 2.7 % (0-4); Hematocrit 39.1 % (42.0-52.0); Hemoglobin 13.2 g/dl (14.0-18.0); Imm Gran Abs Auto 0.01 X10*3/uL (0.00-0.03); Imm Gran Pct Auto 0.2 % (0.0-0.4); Lymphocytes Percent Auto 20.5 % (20-40); Mean Corpuscular HGB Conc 33.8 g/dl (31.0-36.0); Mean Corpuscular Hemoglobin 31.5 pg (27.0-33.0); Mean Corpuscular Volume 93.3 fL (80.0-98.0); Monocytes Absolute Auto 0.3 X10*3/uL (0.1-1.2); Monocytes Percent Auto 6.4 % (2-11); Neutrophils Absolute Auto 3.3 x10*3/uL (2.0-8.3); Neutrophils Percent Auto 69.4 % (45-73); Platelet Count 148 X10*3/uL (160-400); Red Blood Count 4.19 X10*6/uL (4.60-5.80); White Blood Count 4.8 X10*3/uL (4.8-10.8)
[2022-10-22 12:05] LABS: Alanine Aminotransferase 29 U/L (0-40); Albumin Level 4.3 g/dL (3.5-5.0); Alkaline Phosphatase 73 U/L (39-117); Anion Gap 11 (12-20); Aspartate Amino Transferase 24 U/L (5-37); Bilirubin Total 0.4 mg/dL (0.0-1.0); Blood Urea Nitrogen 10 mg/dL (9-16); Calcium 9.6 mg/dL (8.4-10.2); Carbon Dioxide 24 mmol/L (22-29); Chloride 109 mmol/L (96-108); Estimated Glomerular Filt Rate > 60; Glucose Fasting 91 mg/dL (60-99); Sodium 140 mmol/L (135-145); Total Protein 7.2 g/dL (6.5-8.0)
== END 2022-10-22 10:04 | disposition home or self-care (01) ==
LOC: HO.WFDLDS 10:03
PROVIDERS: Visit Provider Family Medicine
DX: Z00.00 Encounter for general adult medical examination without abnormal findings (principal)
CPT/HCPCS: 36415; 80053; 85025

== ENCOUNTER 2022-11-27 09:21 | Outpatient (REF) | payer OTHER, SELFPAY ==
--- NOTE | ~2022-11-27 | CT_ITS ---
EXAMINATION: CT CHEST WITHOUT CONTRAST CLINICAL INFORMATION: Solitary pulmonary nodule COMPARISON: 04/24/2022 TECHNIQUE: Multidetector volumetric CT imaging of the chest was done. Axial MIP volume rendering provided. Sagittal and coronal reformatted images were obtained. This CT examination was performed using dose optimization techniques as appropriate, variously including the following: *Automated exposure control *Adjustment of mA and/or kV according to patient size (this includes techniques or standardized protocols for targeted exams where dose is matched to indication/reason for exam; i.e. extremities or head) *Use of iterative reconstruction technique DLP: 284 mGy-cm FINDINGS: PROFESSOR OF ENVIRONMENTAL STUDIES: Unremarkable LUNGS: There is stable right lower lobe 0.8 cm well-circumscribed nodule seen on image 461 series 6. MEDIASTINUM: The mediastinum is normal. CORONARY ARTERY CALCIFICATION: None visualized on this study. PLEURA: There is no pleural effusion. No pleural mass or thickening. AXILLA: No lymphadenopathy. UPPER ABDOMEN: Gallbladder is surgically absent. OSSEOUS STRUCTURES: Unremarkable. CT/CT chest wo IV con IMPRESSION: Stable right lower lobe 0.8 cm nodule. Fleischner guidelines were followed.
== END 2022-11-27 09:22 | disposition home or self-care (01) ==
LOC: HO.CT 09:21
PROVIDERS: PCP Nurse Practitioner Family; Visit Provider Hospitalist
DX: R91.1 Solitary pulmonary nodule (principal)
CPT/HCPCS: 71250

== ENCOUNTER 2022-11-27 09:39 | Emergency (ER) | payer OTHER, SELFPAY ==
--- NOTE | ~2022-11-27 | XR_ITS ---
EXAMINATION: XR CHEST CLINICAL INFORMATION: Fever COMPARISON: None available. TECHNIQUE: Frontal view of the chest was obtained. FINDINGS: No significant abnormality is noted involving the heart, lungs, mediastinum, bony thorax or soft tissues. XR/XR chest 1V IMPRESSION: Unremarkable examination.
[2022-11-27 09:41] VITALS: BP 117/88; PULSE 85; RESP 16; TEMP 37.6; O2SAT 96; BMI 33.4
--- NOTE | 2022-11-27 10:28 | ED.GENADULT ---
HPI - General Adult General Chief complaint: General Medical Stated complaint: Fever Chills Etc Time Seen by Provider: 11/27/22 10:16 Source: patient Mode of arrival: ambulatory Limitations: no limitations History of Present Illness HPI narrative: 47-year-old male came in for evaluation of fever since yesterday, patient is prone to febrile illness with no underlying pathology. Patient otherwise decline any coughing, no SOB, no abdominal pain, no nausea, no vomiting, no diarrhea. No coughing, no sneezing, no sinus pressure, no dysuria, no frequency urination. Related Data Home Medications Medication Instructions Recorded Confirmed pantoprazole 20 mg tablet,delayed 20 mg PO DAILY 07/10/22 release Previous Rx's Medication Instructions Recorded blood pressure kit-extra large #1 ea 10/31/21 fluticasone propionate 50 2 spray intranasal DAILY #16 mL 11/07/21 mcg/actuation nasal spray,suspension linaclotide 145 mcg capsule 145 mcg PO DAILY #30 caps 05/06/22 levofloxacin 500 mg tablet 500 mg PO DAILY 10 days #10 tabs 07/10/22 amoxicillin 875 mg-potassium 1 tab PO Q8H 10 days #30 tabs 08/14/22 clavulanate 125 mg tablet dicyclomine 20 mg tablet 20 mg PO QID Abdominal discomfort 08/14/22 #20 tabs trazodone 50 mg tablet 50 mg PO BEDTIME #60 tabs 08/23/22 Symbicort 80 mcg-4.5 mcg/actuation 2 puff PO BID #10.2 grams 10/24/22 HFA aerosol inhaler (budesonide-formoterol) lorazepam 0.5 mg tablet (Ativan) 0.5 mg PO DAILY PRN anxiety 28 11/10/22 days #28 tabs Allergies Allergy/AdvReac Type Severity Reaction Status Date / Time penicillin V Allergy Unknown unknown, Verified 08/14/22 10:04 patient was very young Review of Systems Review of Systems: All other systems are reviewed and are negative Constitutional: Reports as per HPI and Reports no additional constitutional complaints Eyes: Reports as per HPI and Reports no additional eye complaints Reports system reviewed and no additional complaints, except as documented Cardiovascular: Reports as per HPI and Reports no additional cardiovascular complaints Respiratory: Reports as per HPI and Reports no additional respiratory complaints Gastrointestinal: Reports as per HPI and Reports no additional gastrointestinal complaints Genitourinary: Reports no additional female genitourinary complaints Musculoskeletal: Reports no additional musculoskeletal complaints Skin/Breast: Reports system reviewed and no additional complaints, except as docu Psychiatric: Reports no additional psychiatric complaints Endocrine: Reports no additional endocrine complaints Hematologic/Lymphatic: Reports no additional hematologic/lymphatic complaints Allergic/Immunologic: Reports no additional allergic/immunologic complaints Reports system reviewed and no additional complaints, except as documented and Reports Abnormal speech present [facility] Past Medical History Medical History Fever SKYLER (obstructive sleep apnea) Asthma Chronic GERD Hernia Fatigue COVID Diverticulitis Surgical History Hx of colonoscopy History of esophagogastroduodenoscopy (EGD) Hx of cholecystectomy Family History Family History Father HTN (hypertension) Stroke Heart attack Mother Lung cancer Maternal Grandmother Lung cancer Other Substance use disorder Social History Social History Housing: House Patient Tobacco Use Status: Former Tobacco user Tobacco use type: Cigarette e-Cigarette/Vaping Use: Never Used Advance Directives: No service: No Current occupational status: employed 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 Blood pressure elevated. Heart rate normal. Respiratory rate normal. Temperature normal. Oxygen saturation normal. Appearance: Alert. Oriented X3. No acute distress. Head: Normal external exam. Normocephalic. Atraumatic. No [place] signs noted. No raccoon eyes noted Eyes: PERRLA. EOMI. Conjunctiva and sclera normal. Eyelids normal. ENT: TM's Normal. Pharynx normal. Uvula midline. Moist mucous membranes. No trismus noted. No drooling noted. No muffled voice noted. Neck: Normal inspection. Neck supple. FROM. No adenopathy. Thyroid Normal. No meningeal signs. No neck mass noted. CVS: Normal heart rate and rhythm. Heart sound normal. No murmurs noted. Pulses normal throughout. Respiratory: No respiratory distress. Painless inspiration. Breath sounds normal. No wheezes/rales/rhonchi noted. Chest nontender. No accessory muscle usage noted or decreased air movement noted. Abdomen: Soft and nontender. Bowel sounds normal in all 4 quadrants. No distention noted. No organomegaly noted. No visible injury noted. Back: No CVA tenderness. Full range of motion noted. Skin: Skin warm and dry. Normal skin color. Normal skin turgor. No rashes/lesions/lacerations noted. Extremities: No lower extremity edema. Extremities exhibit normal range of motion. Extremities nontender. Neuro: Oriented X 3. Cranial nerve exam: II-XII are grossly intact No motor deficit. No sensory deficit. Reflexes normal. Course Course Course Narrative: 47-year-old male came in for evaluation of fever, physical exam and findings are consistent with COVID 19 upper respiratory infection. Patient was instructed to drink plenty of fluids and stay home for self quarantine and wear a face mask. Medications Administered Discontinued Medications Generic Name Dose Route Start Last Admin Trade Name Freq PRN Reason Stop Dose Admin Sodium Chloride 1,000 mls @ 999 mls/hr 11/27/22 10:25 11/27/22 10:45 Ns IV 11/27/22 11:25 999 mls/hr .Q1H1M ONE Administration Medical Decision Making Differential Diagnosis Differential Diagnoses: The differential diagnosis associated with the presentation includes ( pneumonia, pneumothorax, pleural effusion, COVID-19 infection, influenza, severe electrolyte abnormality, severe anemia.) Admission/Observation Consideration of admission/observation: Escalation of care including admission/observation considered Lab Data [facility] Lab Attestation statement: I reviewed the patient's lab results. 11/27/22 10:38 11/27/22 10:38 Labs: Lab Results 11/27/22 Range/Units 10:38 WBC 3.5 L (4.8-10.8) X10*3/uL RBC 4.34 L (4.60-5.80) X10*6/uL Hgb 13.6 L (14.0-18.0) g/dl Hct 39.6 L (42.0-52.0) % MCV 91.2 (80.0-98.0) fL MCH 31.3 (27.0-33.0) pg MCHC 34.3 (31.0-36.0) g/dl RDW 12.6 (11.0-16.0) % Plt Count 128 L (160-400) X10*3/uL MPV 8.4 L (9.4-12.4) fL Immature Gran % (Auto) 0.3 (0.0-0.4) % Neut % (Auto) 71.6 (45-73) % Lymph % (Auto) 15.2 L (20-40) % [place] % (Auto) 10.6 (2-11) % Eos % (Auto) 1.7 (0-4) % Baso % (Auto) 0.6 (0-2) % Lymph # (Auto) 0.5 L (1.2-4.9) X10*3/uL [place] # (Auto) 0.4 (0.1-1.2) X10*3/uL Eos # (Auto) 0.1 (0.0-0.4) X10*3/uL Baso # (Auto) 0.0 (0.0-0.2) X10*3/uL Abs Immat Gran (auto) 0.01 (0.00-0.03) X10*3/uL Absolute Neuts (auto) 2.5 (2.0-8.3) x10*3/uL Absolute Nucleated RBC 0.000 (0.0-0.012) X10*3/uL Nucleated RBC % (auto) 0.0 (0.0-0.2) /100WBC Sodium 136 (135-145) mmol/L Potassium 4.6 (3.3-5.1) mmol/L Chloride 105 (96-108) mmol/L Carbon Dioxide 24 (22-29) mmol/L Anion Gap 12 (12-20) BUN 11 (9-16) mg/dL Creatinine 1.15 (0.5-1.4) mg/dL Estim Creat Clear Calc 105.4 Estimated GFR > 60 Random Glucose 89 (60-115) mg/dL Calcium 9.3 (8.4-10.2) mg/dL Total Bilirubin 0.5 (0.0-1.0) mg/dL Direct Bilirubin 0.1 (0.0-0.5) mg/dL AST 48 H (5-37) U/L ALT 55 H (0-40) U/L Alkaline Phosphatase 136 H (39-117) U/L Troponin I High Sens < 2.7 (<3.5-35.0) ng/L B-Natriuretic Peptide 12 (<100) pg/mL Total Protein 7.5 (6.5-8.0) g/dL Albumin 4.2 (3.5-5.0) g/dL Lipase 164 H (8-78) U/L Influenza Type A (PCR) NEGATIVE (Negative) Influenza Type B (PCR) NEGATIVE (Negative) RSV RNA Qual (PCR) NEGATIVE (Negative) SARS-CoV-2 RNA (RT-PCR) POSITIVE A (Negative) Independent Interpretation I performed an independent interpretation of an: Plain X-Ray ( Chest: No acute intrathoracic pathology.) Radiology Impression Discussion of test interpretation with radiology: I have reviewed the radiologist's reading. Discharge Plan Discharge Clinical Impression: COVID-19 virus infection Patient Disposition: Home, Self-Care Instructions: COVID-19 (Coronavirus Disease 2019) (ED) Additional Instructions: wear a face mask at all times, keep social distance, frequent handwashing, self quarantine for 1 week. Prescriptions: No Action fluticasone propionate 50 mcg/actuation spray,suspension 2 spray intranasal DAILY Qty: 16 0RF trazodone 50 mg tablet 50 mg PO BEDTIME MDD two tabs may repeat if needed Qty: 60 2RF budesonide-formoterol [Symbicort] 80-4.5 mcg/actuation HFA aerosol inhaler 2 puff PO BID Qty: 10.2 2RF lorazepam [Ativan] 0.5 mg tablet 0.5 mg PO DAILY PRN (Reason: anxiety) 28 Days Qty: 28 0RF amoxicillin-pot clavulanate 875-125 mg tablet 1 tab PO Q8H 10 Days Qty: 30 0RF dicyclomine 20 mg tablet 20 mg PO QID Qty: 20 0RF (DME) blood pressure kit-extra large Kit See Rx Instructions .Route Qty: 1 0RF Rx Instructions: As directed linaclotide 145 mcg capsule 145 mcg PO DAILY Qty: 30 1RF pantoprazole 20 mg tablet,delayed release (DR/EC) 20 mg PO DAILY levofloxacin 500 mg tablet 500 mg PO DAILY 10 Days Qty: 10 0RF Stand Alone Forms: Work/School Release
[2022-11-27 10:43] LABS: MANUAL DIFF FLAG NO
[2022-11-27 10:45] LABS: Basophils Percent Auto 0.6 % (0-2); Eosinophils Absolute Auto 0.1 X10*3/uL (0.0-0.4); Eosinophils Percent Auto 1.7 % (0-4); Hematocrit 39.6 % (42.0-52.0); Hemoglobin 13.6 g/dl (14.0-18.0); Imm Gran Abs Auto 0.01 X10*3/uL (0.00-0.03); Imm Gran Pct Auto 0.3 % (0.0-0.4); Lymphocytes Absolute Auto 0.5 X10*3/uL (1.2-4.9); Lymphocytes Percent Auto 15.2 % (20-40); Mean Corpuscular HGB Conc 34.3 g/dl (31.0-36.0); Mean Corpuscular Hemoglobin 31.3 pg (27.0-33.0); Mean Corpuscular Volume 91.2 fL (80.0-98.0); Mean Platelet Volume 8.4 fL (9.4-12.4); Monocytes Absolute Auto 0.4 X10*3/uL (0.1-1.2); Monocytes Percent Auto 10.6 % (2-11); Neutrophils Absolute Auto 2.5 x10*3/uL (2.0-8.3); Neutrophils Percent Auto 71.6 % (45-73); Platelet Count 128 X10*3/uL (160-400); Red Blood Count 4.34 X10*6/uL (4.60-5.80); Red Cell Distribution Width 12.6 % (11.0-16.0); White Blood Count 3.5 X10*3/uL (4.8-10.8)
[2022-11-27] MEDS: 0.9 % Sodium Chloride 1,000 ML 999 ML IV (10:45)
[2022-11-27 11:07] LABS: B Type Natriuretic Peptide 12 pg/mL (<100)
[2022-11-27 11:09] LABS: Alanine Aminotransferase 55 U/L (0-40); Albumin Level 4.2 g/dL (3.5-5.0); Alkaline Phosphatase 136 U/L (39-117); Anion Gap 12 (12-20); Aspartate Amino Transferase 48 U/L (5-37); Bilirubin Direct 0.1 mg/dL (0.0-0.5); Bilirubin Total 0.5 mg/dL (0.0-1.0); Blood Urea Nitrogen 11 mg/dL (9-16); Calcium 9.3 mg/dL (8.4-10.2); Carbon Dioxide 24 mmol/L (22-29); Chloride 105 mmol/L (96-108); Creatinine Clr Calc Pharmacy 105.4; Estimated Glomerular Filt Rate > 60; Glucose Random 89 mg/dL (60-115); Lipase 164 U/L (8-78); Potassium 4.6 mmol/L (3.3-5.1); Sodium 136 mmol/L (135-145); Total Protein 7.5 g/dL (6.5-8.0); Troponin-I High Sensitivity < 2.7 ng/L (<3.5-35.0)
[2022-11-27 11:23] LABS: Influenza A PCR NEGATIVE (Negative); Influenza B PCR NEGATIVE (Negative); Resp Syncy Virus RNA Qual PCR NEGATIVE (Negative); SARS COV2 PCR INHOUSE POSITIVE (Negative)
[2022-11-27 12:12] VITALS: BP 115/73; PULSE 62; RESP 15; TEMP 36.6; O2SAT 100
[2022-11-27 12:35] LABS: Appearance Urine Clear; Color Urine Yellow; Glucose Urine UA Negative (Negative); Leukocyte Esterase Urine Negative (Negative); Nitrite Urine Negative (Negative); Urine Blood Negative (Negative); Urine Ketones Negative (Negative); Urine Protein Negative (Neg-Trace)
== END 2022-11-27 12:51 | disposition home or self-care (01) ==
PROVIDERS: Emergency Provider Emergency Medicine
DX: U07.1 COVID-19 (principal); R50.9 Fever, unspecified; Z87.891 Personal history of nicotine dependence
CPT/HCPCS: 0241U; 36415; 71045; 80048; 80076; 81003; 83690; 83880; 84484; 85025; 99283; 99284

== ENCOUNTER 2023-01-15 09:43 | Outpatient (AMB) | payer OTHER, SELFPAY ==
[2023-01-15 09:50] VITALS: PULSE 70; O2SAT 97; BMI 31.4
--- NOTE | 2023-01-15 09:50 | A.OFFVIS_ITS ---
Intake Vital Signs 01/15/23 09:50 Height 6 ft 1 in Weight 238 lb BMI 31.4 Pulse 70 Pulse Source Pulse Oximeter Pulse Oximetry (%) 97 Oxygen Delivery Method Room Air Intake Visit Reasons: Sleep Study Results [facility]er Required: No Allergies penicillin V Allergy (Unknown, Verified 01/15/23 09:51) unknown, patient was very young HPI HPI Comments History of Present Illness Details The patient is a 47-year-old gentleman with a known history of kidney stones in addition to significant constipation who apparently was in his usual state health until back in the winter when he started developing significant abdominal pain to the point that he went to the ER. When he was there he did undergo CT scan of the abdomen with some degree of lung cuts. It demonstrated that he has a 7 mm well-circumscribed pulmonary nodule. However, he did not know about it. Ultimately the patient was sent home and he returned about a month later and undergoing a repeat CT scan of the abdomen. Again the lung cuts demonstrated that the patient has a 7 mm well-circumscribed nodule. Does not appear to be significantly changed from his previous CT scan. The patient became concerned because of the findings and was referred to Pulmonary. I did search his records. The patient does not have a formal CT scan of the chest. there is a history of cancer in the family although not lung cancer. The patient does describe shortness of breath dyspnea on exertion. Rmtc-vy-kjythzfj severity. The patient does have a short-acting beta agonist which is partially helpful. 04/30/2022 the patient is here for a pulm onary follow-up visit. He overall is doing a little better the Symbicort. He has noticed some increased cough with able to are clear secretions a little better. Still continues to have significant shortness of breath moderate severity. Also complains of chronic fatigue and significant tachycardia. Even with minimal activities he developed significant fatigue and tachycardia. 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 In the meantime the patient does have daytime drowsiness. It is very reasonable to do a sleep study. He did have a elevated [place] score of 14/24. The patient also had a PFT done demonstrating some redundant upper airway tissue which is typical of sleep apnea. The rest of the pulmonary function studies were reassuring. We also reviewed his CT scan of the chest that was personally by me I did compare to his previous CT scan of the abdomen. It appears that the largest nodule still has the right lower lobe nodule measuring 8 mm in size. Well-circumscribed. In addition to that she does have other subcentimeter pulmonary nodules bilaterally. No significant emphysema that I could appreciate. I may have mention that to him during the last visit based on the CT scan of the abdomen but I really do not see any significant emphysema at this time. He did smoke in the past although he is not smoking anymore. 07/10/2022 the patient is here for pulmon suresh follow-up visit. He is not feeling well today. He has had fevers for the last 3 days. Also having better discomfort. Some difficulty swallowing. Denies any significant cough. Denies any shortness of breath. He starting daytime drowsiness. His [place] score is still elevated 14/24. He did have a sleep study which we reviewed demonstrating no evidence of any sleep apnea. Again, his CT scan of the chest did demonstrate the pulmonary nodules that will need a CT scan in 6 months time. Otherwise patient is without any other issues. He does have a history of diverticulitis he is concerned about that. I will go ahead and treated for strep pharyngitis since we try an increased number of cases. In the meantime the patient can follow up with his GI doctor or go to the ER if his abdominal pain worsens. 01/15/2023 the patient is here for a pul monary follow-up visit. Overall the patient has been feeling better. He is still dealing with his GI issues and will be seen his GI doctor soon. In the meantime from a respiratory status the patient denies any respiratory complaints. He did have a CT scan of the chest which we personally reviewed demonstrating stable 8 mm pulmonary nodule in the right lower lobe. On further evaluation appears to have some different consistencies likely consistent with a hamartoma. Explained to him that these are benign findings although due to the size will go ahead and repeat the CT scan in a year's time to make sure there stability for least 2 years as per the recommendations. 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 Current occupational exposures/hazards: No Cognitive needs: No Hearing needs: No Vision needs: Yes Review of Systems Const Reports daytime sleepiness, Reports difficulty sleeping, Reports fever(s) and Reports weight gain Eyes Denies change in vision ENT Reports nasal congestion Card Denies chest pain, Reports palpitations and Denies dyspnea on exertion Resp Reports cough, Denies dyspnea on exertion and Denies wheezing GI Reports abdominal pain Musc Reports myalgias Skin/Breast Denies rash Psych Reports anxiety Endo Reports palpitations Edmundo/Lymph Denies lymphadenopathy Aller/Immun Denies wheezing Physical Exam Vital Signs: Last Vital Signs Pulse 70 01/15/23 09:50 Pulse Ox 97 01/15/23 09:50 Oxygen Delivery Method Room Air 01/15/23 09:50 BMI result Body Mass Index 31.4 Const Other: Morbidly obese General: comfortable and no acute distress HEENT Head: Yes normocephalic Eyes General: appearance normal, both eyes and all related structures Neck Neck: Yes supple Chest Chest palpation & inspection: normal inspection of the chest Resp Effort & Inspection: normal respiratory effort Auscultation: clear to auscultation bilaterally and no wheezes Cardio Rate: regular rate GI Other: Rectal exam - he has hemorrhoids, thrombosis resolved, no pain, no redness, no discharge, no other pathology Palpation (GI): Soft to palpation Extrem General: Yes no clubbing, cyanosis or edema Assessment & Plan Assessment & Plan (1) Asthma: Code(s): J45.909 - Unspecified asthma, uncomplicated Qualifiers: Asthma severity: moderate Asthma persistence: persistent Asthma complication type: uncomplicated Qualified Code(s): J45.40 - Moderate persistent asthma, uncomplicated (2) Pulmonary nodule: Code(s): R91.1 - Solitary pulmonary nodule (3) Allergies: Code(s): T78.40XA - Allergy, unspecified, initial encounter Qualifiers: Encounter type: subsequent encounter Qualified Code(s): T78.40XD - Allergy, unspecified, subsequent encounter (4) SKYLER (obstructive sleep apnea): Code(s): G47.33 - Obstructive sleep apnea (adult) (pediatric) Plan CT chest 12 months continue symbicort SHIRAZ as needed F/U 12 months Coding Level of Care Code Est Pt Level 4 (54690) Diagnoses Moderate persistent asthma without complication J45.40 Asthma severity: moderate Asthma persistence: persistent Asthma complication type: uncomplicated Pulmonary nodule R91.1 Allergy, subsequent encounter T78.40XD Encounter type: subsequent encounter SKYLER (obstructive sleep apnea) G47.33 Time Spent (min) 16
== END 2023-01-15 10:09 | disposition home or self-care (01) ==
PROVIDERS: PCP Family Medicine; Visit Provider Hospitalist
DX: J45.40 Moderate persistent asthma, uncomplicated (principal); R91.1 Solitary pulmonary nodule; T78.40XD Allergy, unspecified, subsequent encounter; G47.33 Obstructive sleep apnea (adult) (pediatric)
CPT/HCPCS: 99214

== ENCOUNTER → 2023-01-15 09:43 | Outpatient (BNVA) | payer OTHER, SELFPAY | PROVIDERS: PCP Family Medicine; Visit Provider Hospitalist | DX: R91.1 Solitary pulmonary nodule (principal); J45.909 Unspecified asthma, uncomplicated; T78.40XA Allergy, unspecified, initial encounter; G47.33 Obstructive sleep apnea (adult) (pediatric) ==

== ENCOUNTER 2023-01-28 14:33 | Outpatient (AMB) | payer OTHER, MEDICAID, SELFPAY ==
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
[2023-01-28 14:44] VITALS: BP 120/90; PULSE 72; O2SAT 98; BMI 33.8
[2023-01-28 15:35] VITALS: BP 120/86
== END 2023-01-28 15:38 | disposition home or self-care (01) ==
LOC: HO.HMGC 14:33
PROVIDERS: PCP Nurse Practitioner Family; Visit Provider Nurse Practitioner Family
DX: M67.40 Ganglion, unspecified site (principal); L91.0 Hypertrophic scar; Z00.00 Encounter for general adult medical examination without abnormal findings
CPT/HCPCS: 99386

== ENCOUNTER 2023-01-31 10:20 | Outpatient (REF) | payer OTHER, MEDICAID, SELFPAY ==
[2023-01-31 13:48] LABS: MANUAL DIFF FLAG NO
[2023-01-31 13:52] LABS: Appearance Urine Cloudy; Color Urine Yellow; Glucose Urine UA Negative (Negative); Leukocyte Esterase Urine Negative (Negative); Nitrite Urine Negative (Negative); PH 8.5 (5.0-9.0); Urine Blood Negative (Negative); Urine Ketones Negative (Negative); Urine Protein Negative (Neg-Trace)
[2023-01-31 14:01] LABS: Basophils Absolute Auto 0.1 X10*3/uL (0.0-0.2); Basophils Percent Auto 1.2 % (0-2); Eosinophils Absolute Auto 0.1 X10*3/uL (0.0-0.4); Eosinophils Percent Auto 2.6 % (0-4); Hemoglobin 13.1 g/dl (14.0-18.0); Imm Gran Abs Auto 0.01 X10*3/uL (0.00-0.03); Imm Gran Pct Auto 0.2 % (0.0-0.4); Mean Corpuscular HGB Conc 33.6 g/dl (31.0-36.0); Mean Corpuscular Hemoglobin 31.3 pg (27.0-33.0); Mean Corpuscular Volume 93.1 fL (80.0-98.0); Mean Platelet Volume 9.4 fL (9.4-12.4); Monocytes Absolute Auto 0.3 X10*3/uL (0.1-1.2); Monocytes Percent Auto 6.8 % (2-11); Neutrophils Absolute Auto 2.8 x10*3/uL (2.0-8.3); Neutrophils Percent Auto 66.2 % (45-73); Platelet Count 142 X10*3/uL (160-400); Red Blood Count 4.19 X10*6/uL (4.60-5.80); Red Cell Distribution Width 13.1 % (11.0-16.0); White Blood Count 4.3 X10*3/uL (4.8-10.8)
[2023-01-31 14:16] LABS: Alanine Aminotransferase 33 U/L (0-40); Albumin Level 4.3 g/dL (3.5-5.0); Alkaline Phosphatase 69 U/L (39-117); Anion Gap 10 (12-20); Aspartate Amino Transferase 28 U/L (5-37); Bilirubin Total 0.7 mg/dL (0.0-1.0); Blood Urea Nitrogen 11 mg/dL (9-16); Calcium 9.4 mg/dL (8.4-10.2); Carbon Dioxide 25 mmol/L (22-29); Chloride 108 mmol/L (96-108); Cholesterol 185 mg/dL (<200); Estimated Glomerular Filt Rate > 60; Glucose Fasting 88 mg/dL (60-99); HDL Cholesterol 36 mg/dL (>40); LDL Cholesterol Calculated 135 mg/dL (<100); Potassium 4.3 mmol/L (3.3-5.1); Sodium 139 mmol/L (135-145); Total Protein 7.1 g/dL (6.5-8.0); Triglycerides 72 mg/dL (<150)
[2023-01-31 14:24] LABS: TSH reflex Free T4 1.71 uIU/mL (0.32-4.0)
== END 2023-01-31 10:21 | disposition home or self-care (01) ==
LOC: HO.HMGCLDS 10:20
PROVIDERS: PCP Nurse Practitioner Family; Visit Provider Nurse Practitioner Family
DX: Z00.00 Encounter for general adult medical examination without abnormal findings (principal); E78.5 Hyperlipidemia, unspecified; R53.83 Other fatigue
CPT/HCPCS: 36415; 80053; 80061; 81003; 84443; 85025

== ENCOUNTER 2023-03-10 12:52 | Outpatient (AMB) | payer OTHER, MEDICAID, SELFPAY ==
[2023-03-10 13:58] VITALS: BP 112/72; PULSE 68; TEMP 36.3; O2SAT 98; BMI 34.0
--- NOTE | 2023-03-10 13:58 | MHC.OFFWIV ---
Intake Vital Signs 03/10/23 13:58 Height 6 ft 1 in Weight 258 lb BMI 34.0 BP 112/72 Blood Pressure Location Rt brachial Position Sitting Pulse 68 Pulse Source Pulse Oximeter Temp 97.4 F Temp Source Temporal Artery Scan Pulse Oximetry (%) 98 Oxygen Delivery Method Room Air Intake Visit Reasons: EP, blood in stool, BP 95/55 (lobby) Intake Note: pt is here today for blood in stool and BP 95/55 started 5 days Patient Tobacco Use Status: Former Tobacco user Allergies penicillin V Allergy (Unknown, Verified 03/10/23 13:59) unknown, patient was very young Do you need a note to return to daycare/school/sports/work: No HPI EP, blood in stool, BP 95/55 (lobby) HPI Details This is a 48 year old male patient who presents today with c/o bleeding hemorrhoid. He states this has been an ongoing issue given his chronic constipation, however has worsened recently. He states that about 5 days ago, he was severely constipated and had impacted stool. He was eventually able to pass a very large bowel movement and following this noticed a large amount of bright red blood in the toilet. With each BM he has had since then, most of which have been small firm BMs, he has had a large amount of recurrent bright red blood. He states he cannot see his stool in the toilet due to the blood staining of the water. He is not able to palpate any external hemorrhoid however states rectum is constantly painful and he cannot tolerate any position for prolonged periods of time. He states that there is no rectal bleeding when he is not having a BM. He has been see by [facility] previously however reports he no-showed his last visit due to an illness and has not made a new appt. yet. He has been trying to increase water intake and has also had some minor benefit from Miralax. He has been concerned at the blood loss and his BP this morning at home which was 95/55. He denies any dizziness. He is eating and drinking well. 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 Current occupational exposures/hazards: No Cognitive needs: No Hearing needs: No Vision needs: Yes Review of Systems Const All systems reviewed & are unremarkable except as noted in HPI and below Physical Exam Vital Signs: Last Vital Signs Temp 97.4 F 03/10/23 13:58 Pulse 68 03/10/23 13:58 BP 112/72 03/10/23 13:58 Pulse Ox 98 03/10/23 13:58 Oxygen Delivery Method Room Air 03/10/23 13:58 BMI result Body Mass Index 34.0 Const General: cooperative and no acute distress Resp Effort & Inspection: normal respiratory effort Auscultation: clear to auscultation bilaterally Cardio Jugular venous distension: no JVD Palpation: normal PMI Rate: regular rate Rhythm: regular rhythm Peripheral pulses: Peripheral pulses 2+ throughout GI Palpation (GI): Soft to palpation (nontender) Rectal Exam - Male: Yes hemorrhoids (hemorrhoid left side of rectum slightly protruding externally. no bleeding.) Skin General skin exam: no rashes or lesions noted Neuro General: no focal motor deficits Extrem General: Yes capillary refill normal and Yes no clubbing, cyanosis or edema Psych Appearance: grossly normal Mental Status: mental status grossly normal Speech and movement: Normal speech and movement present Assessment & Plan Assessment & Plan (1) Rectal bleeding: Code(s): K62.5 - Hemorrhage of anus and rectum Plan: This patient likely has a bleeding internal hemorrhoid. He has had some episodes recently of severe constipation and subsequent straining and rectal bleeding. There is some external protrusion of this hemorrhoid which is very tender to palpation. I have prescribed patient some lidocaine/hydrocortisone topical cream and also Dulcolax, which has provided him significant benefit in the past for his constipation. We discussed at length the importance of adequate water and fiber intake. I called Dr. Lorenz's office and they are going to reschedule patient and call him with an appointment. I am also going to check a CBC given the report of significant rectal bleeding and low BP at home, though today in the office BP was 112/72. Advised patient if bleeding worsens, he can go to the ED for evaluation. He can otherwise f/u with PCP and GI. He agrees to plan. (2) Hemorrhoids: Code(s): K64.9 - Unspecified hemorrhoids Qualifiers: Hemorrhoid type: unspecified Qualified Code(s): K64.9 - Unspecified hemorrhoids Plan: Plan as above. Orders: Orders Complete Blood Count Auto Diff Today K62.5 - Hemorrhage of anus and rectum Medications: New lidocaine HCl-hydrocortison ac 3-0.5 % 1 appl DC BID 98 grams 0RF K62.5 - Hemorrhage of anus and rectum, K64.9 - Unspecified hemorrhoids bisacodyl (Dulcolax (bisacodyl)) 5 mg PO BEDTIME 2 days 2 tabs 0RF K62.5 - Hemorrhage of anus and rectum, K64.9 - Unspecified hemorrhoids Coding Level of Care Code Est Pt Level 4 (80440) Diagnoses Rectal bleeding K62.5 Hemorrhoids, unspecified hemorrhoid type K64.9 Hemorrhoid type: unspecified
== END 2023-03-10 15:27 | disposition home or self-care (01) ==
PROVIDERS: PCP Nurse Practitioner Family; Visit Provider Nurse Practitioner Family
DX: K62.5 Hemorrhage of anus and rectum (principal); K64.9 Unspecified hemorrhoids
CPT/HCPCS: 99214

== ENCOUNTER 2023-03-10 14:53 | Outpatient (REF) | payer OTHER, MEDICAID, SELFPAY | END 2023-03-10 14:54 | disposition home or self-care (01) | LOC: HO.HMGCLDS 14:53 | PROVIDERS: PCP Nurse Practitioner Family; Visit Provider Nurse Practitioner Family | DX: K62.5 Hemorrhage of anus and rectum (principal) | CPT/HCPCS: 36415; 85025 ==

== ENCOUNTER 2023-07-04 08:01 | Outpatient (REF) | payer OTHER, MEDICAID, SELFPAY ==
[2023-07-04 10:30] LABS: MANUAL DIFF FLAG NO
[2023-07-04 10:37] LABS: Basophils Absolute Auto 0.1 X10*3/uL (0.0-0.2); Basophils Percent Auto 1.1 % (0-2); Eosinophils Absolute Auto 0.2 X10*3/uL (0.0-0.4); Eosinophils Percent Auto 2.8 % (0-4); Hemoglobin 13.7 g/dl (14.0-18.0); Imm Gran Abs Auto 0.01 X10*3/uL (0.00-0.03); Imm Gran Pct Auto 0.2 % (0.0-0.4); Lymphocytes Absolute Auto 1.4 X10*3/uL (1.2-4.9); Lymphocytes Percent Auto 25.5 % (20-40); Mean Corpuscular HGB Conc 33.4 g/dl (31.0-36.0); Mean Corpuscular Hemoglobin 31.6 pg (27.0-33.0); Mean Corpuscular Volume 94.7 fL (80.0-98.0); Mean Platelet Volume 8.7 fL (9.4-12.4); Monocytes Absolute Auto 0.4 X10*3/uL (0.1-1.2); Monocytes Percent Auto 7.8 % (2-11); Neutrophils Absolute Auto 3.5 x10*3/uL (2.0-8.3); Neutrophils Percent Auto 62.6 % (45-73); Platelet Count 162 X10*3/uL (160-400); Red Blood Count 4.33 X10*6/uL (4.60-5.80); Red Cell Distribution Width 13.4 % (11.0-16.0); White Blood Count 5.7 X10*3/uL (4.8-10.8)
[2023-07-04 11:03] LABS: Iron 97 mcg/dL (45-160); Percent Iron Saturation 41 % (15-50); Total Iron Binding Capacity 235 mcg/dL (228-428); Unsaturated Iron Binding 138 ug/dL
[2023-07-04 11:18] LABS: Folate 2.7 ng/mL (> or = 4.0); Vitamin B12 338 pg/mL (200-900)
[2023-07-04 11:19] LABS: Ferritin 173 ng/mL (20-250)
== END 2023-07-04 08:02 | disposition home or self-care (01) ==
LOC: HO.HMGCLDS 08:01
PROVIDERS: PCP Nurse Practitioner Family; Visit Provider Nurse Practitioner Family
DX: D64.9 Anemia, unspecified (principal)
CPT/HCPCS: 36415; 82607; 82728; 82746; 83540; 85025

== ENCOUNTER 2023-07-07 09:49 | Outpatient (AMB) | payer OTHER, MEDICAID, SELFPAY ==
--- NOTE | 2023-07-07 09:54 | A.OFFPC_ITS ---
Vital Signs 07/07/23 09:56 Height 6 ft 1 in Weight 278 lb BMI 36.7 BP 120/82 Blood Pressure Location Rt brachial Position Sitting Pulse 86 Pulse Source Pulse Oximeter Pulse Oximetry (%) 96 Oxygen Delivery Method Room Air Intake Visit Reasons: 6 Month F/U Intake Note: Patient here to follow up on labs Allergies penicillin V Allergy (Unknown, Verified 07/07/23 09:56) unknown, patient was very young Medication List - Last Reconciled 07/07/23 by ENEDINA HopkinsP- bisacodyl (Dulcolax (bisacodyl)) 5 mg PO BEDTIME 2 days bisacodyl (Fleet Bisacodyl) 10 mg (30 mL) MD DAILY PRN 3 days blood pressure kit-extra large As directed fluticasone propionate 50 mcg/actuation 2 sprays intranasal DAILY linaclotide 145 mcg PO DAILY lorazepam (Ativan) 0.5 mg PO DAILY PRN 28 days pantoprazole 20 mg PO DAILY sennosides-docusate sodium 8.6-50 mg (Senna Plus) 2 tab-caps (2 x 8.6-50 mg) PO BEDTIME 30 days zolpidem 5 mg PO BEDTIME PRN 30 days Tobacco use date assessed: 07/07/23 Dental Screening Dental Screen Date: 07/07/23 Did you have a dental visit in the last 12 months?: Yes Did you have a dental problem in the last 6 months where you did not have access to dental care?: No Was dental information given to patient?: Patient has dentist HPI 6 Month F/U HPI Details Anxiety/depression: Pt currently sees a therapist regularly. He no longer sees a psychiatrist and would not like to currently. Denies any SI and HI. Will refill ativan and zolpidem. Pt knows not to take these daily. Educated pt on risk of addiction, this is not a long-term med. Pt understands that they can not drive while taking this med, share this med, and to only take as prescribed. Pt reports increased abdominal discomfort/bloating type pains. Will increase pantoprazole from 20mg to 40mg. He has not been able to get in touch with his GI provider. Hx of anemia, will order labs. Denies any blood in stool. [facility] Medical History Fever SKYLER (obstructive sleep apnea) Asthma Chronic GERD Hernia Fatigue COVID Diverticulitis Surgical History Hx of colonoscopy History of esophagogastroduodenoscopy (EGD) Hx of cholecystectomy Family History Father HTN (hypertension) Stroke Heart attack Mother Lung cancer Maternal Grandmother Lung cancer Other Substance use disorder Social History Housing: House Patient Tobacco Use Status: Former Tobacco user Tobacco use type: Cigarette e-Cigarette/Vaping Use: Never Used service: No Current occupational status: employed Current occupation: [employer] Current occupational exposures/hazards: No Cognitive needs: No Hearing needs: No Vision needs: Yes Questionnaire PHQ-9 Over the last 2 weeks, how often have you been bothered by any of the following problems? 1. Little interest or pleasure in doing things: nearly every day 2. Feeling down, depressed, or hopeless: more than half the days 3. Trouble falling or staying asleep, or sleeping too much: nearly every day 4. Feeling tired or having little energy: nearly every day 5. Poor appetite or overeating: nearly every day 6. Feeling bad about yourself - or that you are a failure or have let yourself or your family down: nearly every day 7. Trouble concentrating on things, such as reading the newspaper or watching television: more than half the days 8. Moving or speaking so slowly that other people could have noticed. Or the opposite - being so fidgety or restless that you have been moving around a lot more than usual: several days 9. Thoughts that you would be better off or of hurting yourself in some way: not at all Total score: 20 Depression Screening Interpretation: Positive Depression Screening Follow-up: Existing condition and In treatment Depression Screening Done: Yes Source: Developed by Drs. Clay Leon, Katerin Reddy, Kamran Mcclellan and colleagues, with an educational qian from [employer]. Thrive Questionnaire Date Thrive assessed: 07/07/23 I am a: Patient What is your living situation today?: I have a steady place to live Within the past 12 months, did the food you bought not last and you didn't have the money to get more?: Never true Within the past 12 months, did you worry whether your food would run out before you got money to buy more?: Never true Do you have trouble paying for medicines?: I choose not to answer this question Do you have trouble getting transportation to medical appointments?: I choose not to answer this question Do you have trouble paying your heating and electricity bill?: I choose not to answer this question Do you have trouble taking care of your child, family member or friend?: I choose not to answer this question Do you have trouble with day-to-day activities such as bathing, preparing meals, shopping, managing finances, etc.?: I choose not to answer this question Are you currently unemployed and looking for a job?: I choose not to answer this question Are you interested in more education?: I choose not to answer this question Currently or been in a relationship where the following occur: I choose not to answer this question THRIVE Score: 0 AUDIT C Alcohol Use Questionnaire (AUDIT-C) 1. How often do you have a drink containing alcohol?: Never 3. How often do you have six or more drinks on one occasion?: Never Total Score: 0 Score Reviewed/Action Taken: No BILL-7 AMB Questionnaire BILL-7 Date BILL - 7 assessed: 01/28/23 Feeling nervous, anxious, or on edge: 3 = Nearly every day Not being able to stop or control worryin = Nearly every day Worrying too much about different things: 3 = Nearly every day Trouble relaxin = Nearly every day Being so restless that it is hard to sit still: 3 = Nearly every day Becoming easily annoyed or irritable: 3 = Nearly every day Feeling afraid as if something awful might happen: 3 = Nearly every day Total BILL-7 score (0-4 normal; 5-9 mild; 10-14 moderate; 15-21 severe): 21 Source: Developed by Drs. Clay Leon, Katerin Reddy, Kamran Mcclellan and colleagues, with an educational qian from [employer]. BILL-7 Assessment Billing BILL-7 Assessment Tool: BILL-7 Assessment 64689 Review of Systems Const Reports as per HPI Physical exam (Primary Care) Vital Signs: Last Vital Signs Pulse 86 07/07/23 09:56 BP 120/82 07/07/23 09:56 Pulse Ox 96 07/07/23 09:56 Oxygen Delivery Method Room Air 07/07/23 09:56 BMI result Body Mass Index 36.7 Tobacco/Smoking Status: Tobacco use Status Tobacco use date assessed 07/07/23 07/07/23 10:04 Patient Tobacco Use Status Former Tobacco user 07/07/23 09:54 Tobacco use type Cigarette 07/07/23 09:54 e-Cigarette/Vaping Use Never Used 07/07/23 09:54 PHQ-9: PHQ-9 Score PHQ-9: Total score 20 07/07/23 10:14 Depression Screening Interpretation: Positive Depression Screening Follow-up: Existing condition and In treatment Thrive Assessment: Date of Thrive Assessment Date Thrive assessed 07/07/23 07/07/23 10:04 Currently or been in a relationship where the following occur: I choose not to answer this question Const General: cooperative Nutritional Appearance: obese Orientation/consciousness: patient oriented x3 Resp Effort & Inspection: normal respiratory effort Auscultation: clear to auscultation bilaterally Cardio Rate: regular rate Rhythm: regular rhythm Heart sounds: S1 normal heart sound present and S2 normal heart sound present Neuro General: patient oriented x3 Psych Appearance: grossly normal Mental Status: mental status grossly normal Speech and movement: Normal speech and movement present Affect: normal affect Attitude: cooperative Thought process: Normal thought process present Thought content: Normal thought content present Insight: Good insight present (Psych) Judgement: Good judgement present (Psych) Assessment and Plan Assessment & Plan (1) Anemia: Code(s): D64.9 - Anemia, unspecified Plan: Labs ordered (2) Anxiety and depression: Code(s): F41.9 - Anxiety disorder, unspecified; F32.A - Depression, unspecified Plan: Refilling ativan and zolpidem, continue to follow up with therapist, denies any SI or HI Plan The patient agreed to the use of a internist medical doctor md for this encounter. Scribed for DAMIR Ortiz by Jessica Devries internist medical doctor md, on 07/07/2023 at 10:00 EST. Orders: Orders Complete Blood Count Auto Diff 2 Weeks D64.9 - Anemia, unspecified Comprehensive Met. Panel 2 Weeks D64.9 - Anemia, unspecified Medications: New budesonide-formoterol 80-4.5 mcg/actuation (Symbicort) 1 inh inhalation BID 10.2 grams 3RF folic acid 1 mg PO DAILY 90 tabs 0RF Changed From pantoprazole 20 mg PO DAILY To pantoprazole 40 mg PO DAILY 90 tabs 0RF Refilled lorazepam (Ativan) 0.5 mg PO DAILY 28 days PRN 28 tabs 1RF anxiety F32.A - Depression, unspecified, F41.9 - Anxiety disorder, unspecified zolpidem 5 mg PO BEDTIME 30 days PRN 30 tabs 1RF sleep fluticasone propionate 50 mcg/actuation 2 sprays intranasal DAILY 16 mL 0RF Coding Level of Care Code Est Pt Level 3 (40185) Diagnoses Anemia D64.9 Anxiety and depression F41.9; F32.A Additional Codes BILL-7 Assessment Billing - BILL-7 Assessment Tool: BILL-7 Assessment [id number] ([id number])
[2023-07-07 09:56] VITALS: BP 120/82; PULSE 86; O2SAT 96; BMI 36.7
== END 2023-07-07 10:35 | disposition home or self-care (01) ==
PROVIDERS: PCP Nurse Practitioner Family; Visit Provider Nurse Practitioner Family
DX: D64.9 Anemia, unspecified (principal); F41.9 Anxiety disorder, unspecified; F32.A Depression, unspecified
CPT/HCPCS: 99213

== ENCOUNTER 2023-10-13 10:14 | Outpatient (AMB) | payer OTHER, SELFPAY ==
[2023-10-13 10:17] VITALS: BP 120/78; PULSE 69; O2SAT 97; BMI 36.1
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
== END 2023-10-13 12:22 | disposition home or self-care (01) ==
PROVIDERS: PCP Nurse Practitioner Family; Visit Provider Nurse Practitioner Family
DX: F41.8 Other specified anxiety disorders (principal); F41.9 Anxiety disorder, unspecified; F32.A Depression, unspecified
CPT/HCPCS: 99213

== ENCOUNTER 2023-12-18 12:12 | Outpatient (AMB) | payer OTHER, MEDICAID, SELFPAY ==
[2023-12-18 12:48] VITALS: BP 120/84; PULSE 72; TEMP 36.8; O2SAT 97; BMI 36.1
--- NOTE | 2023-12-18 12:48 | AM.OFFWIN_ITS ---
Intake Vital Signs 12/18/23 12:48 Height 6 ft 1 in Weight 274 lb BMI 36.1 BP 120/84 Blood Pressure Location Rt brachial Position Sitting Pulse 72 Pulse Source Pulse Oximeter Temp 98.3 F Temp Source Oral Pulse Oximetry (%) 97 Oxygen Delivery Method Room Air Intake Visit Reasons: EP pain on LT side of face and swollen Intake Note: pt is here for pain on left side of face with swelling Patient Tobacco Use Status: Former Tobacco user Allergies penicillin V Allergy (Unknown, Verified 12/18/23 12:52) unknown, patient was very young Do you need a note to return to daycare/school/sports/work: No HPI EP pain on LT side of face and swollen HPI Details This note is constructed using voice recognition software. While every effort has been made to ensure accuracy, shipping room supervisor errors may have been included. The patient is a 48 year old male who presents to the clinic today with left- sided facial pressure for the past 3 days. He denies fever, chills, cough, shortness of breath. He reports that initially it felt like there was pressure behind his left eye and into his teeth but that has improved since onset. He denies some tingling, confusion, headache. 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 Current occupational exposures/hazards: No Cognitive needs: No Hearing needs: No Vision needs: Yes Review of Systems Const All systems reviewed & are unremarkable except as noted in HPI and below Physical Exam Vital Signs: Last Vital Signs Temp 98.3 F 12/18/23 12:48 Pulse 72 12/18/23 12:48 BP 120/84 12/18/23 12:48 Pulse Ox 97 12/18/23 12:48 Oxygen Delivery Method Room Air 12/18/23 12:48 BMI result Body Mass Index 36.1 Const General: cooperative, healthy appearing, comfortable and no acute distress Orientation/consciousness: patient oriented x3 Limitations: no limitations HEENT Head: Yes normal to inspection Ears: hearing grossly normal bilaterally, external ears normal and TM's normal bilaterally General nose exam: Normal external nose present, Normal nares present, Abnormal mucous membranes and turbinates present erythematous and Nasal discharge present clear Face and sinus: Yes normal facial exam and Yes sinus tenderness (Left maxillary) Mouth: Normal oral and palatal mucosa present and moist mucous membranes Throat: Yes posterior oropharynx normal, Yes tonsils normal and Yes uvula midline Eyes General: appearance normal, both eyes and all related structures Neck Neck: Yes normal visual inspection Resp Effort & Inspection: normal respiratory effort, able to speak in complete sen tences, Actively coughing, no respiratory distress, not tachypneic, no tripod positioning and no use of accessory muscles Auscultation: clear to auscultation bilaterally Cardio Rate: regular rate Rhythm: regular rhythm Heart sounds: normal S1 and S2 Skin General skin exam: no rashes or lesions noted Neuro General: patient oriented x3 Extrem General: Yes normal to inspection and Yes no clubbing, cyanosis or edema Assessment & Plan Assessment & Plan (1) Sinusitis: Code(s): J32.9 - Chronic sinusitis, unspecified Qualifiers: Sinusitis location: maxillary Chronicity: acute Recurrence: non- recurrent Qualified Code(s): J01.00 - Acute maxillary sinusitis, unspecified Plan: Supportive measures encouraged and reviewed. Advised consideration of sinus rinse if needed. Steroids sent to requested pharmacy for anti-inflammatory effect. Advised patient to follow up with primary care provider with worsening or failure to resolve. Medications: New prednisone 40 mg (2 x 20 mg) PO DAILY 3 days 6 tabs 0RF Coding Level of Care Code Est Pt Level 3 (99263) Diagnoses Acute non-recurrent maxillary sinusitis J01.00 Sinusitis location: maxillary Chronicity: acute Recurrence: non-recurrent
== END 2023-12-18 13:32 | disposition home or self-care (01) ==
PROVIDERS: PCP Nurse Practitioner Family; Visit Provider Registered Nurse
DX: J01.00 Acute maxillary sinusitis, unspecified (principal)

== ENCOUNTER → 2023-12-18 12:12 | Outpatient (BNVA) | payer OTHER, SELFPAY | PROVIDERS: PCP Nurse Practitioner Family; Visit Provider Registered Nurse ==

== ENCOUNTER 2024-01-05 09:38 | Outpatient (AMB) | payer OTHER, MEDICAID, SELFPAY ==
[2024-01-05 10:06] VITALS: BP 122/80; PULSE 90; TEMP 36.8; O2SAT 97; BMI 36.1
--- NOTE | 2024-01-05 10:06 | AM.OFFWIN_ITS ---
Intake Vital Signs 01/05/24 10:06 Height 6 ft 1 in Weight 274 lb BMI 36.1 BP 122/80 Blood Pressure Location Rt brachial Position Sitting Pulse 90 Pulse Source Pulse Oximeter Temp 98.3 F Temp Source Oral Pulse Oximetry (%) 97 Oxygen Delivery Method Room Air Intake Visit Reasons: EP Sinus congestion, fever, chills Intake Note: pt is here for sinus congestion with fever and chills Patient Tobacco Use Status: Former Tobacco user Do you need a note to return to daycare/school/sports/work: No HPI EP Sinus congestion, fever, chills HPI Details This note is constructed using voice recognition software. While every effort has been made to ensure accuracy, cafeteria or lunchroom checker errors may have been included. The patient is a 48 year old male who presents to the clinic today with sinus congestion, fever, chills. He was last seen in the clinic several weeks ago, at which time he was treated with prednisone for symptomatic management and anti- inflammatory effects, however since then he has developed fever, chills, increased sinus congestion. He has tested for COVID which has been negative. Pressure in the sinus cavities feel worse when he leans forward. He denies dyspnea. 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 Current occupational exposures/hazards: No Cognitive needs: No Hearing needs: No Vision needs: Yes Review of Systems Const All systems reviewed & are unremarkable except as noted in HPI and below Physical Exam Vital Signs: Last Vital Signs Temp 98.3 F 01/05/24 10:06 Pulse 90 01/05/24 10:06 BP 122/80 01/05/24 10:06 Pulse Ox 97 01/05/24 10:06 Oxygen Delivery Method Room Air 01/05/24 10:06 BMI result Body Mass Index 36.1 Const General: cooperative, healthy appearing, comfortable and no acute distress Orientation/consciousness: patient oriented x3 Limitations: no limitations HEENT Head: Yes normal to inspection Ears: hearing grossly normal bilaterally, external ears normal and TM's normal bilaterally General nose exam: Normal external nose present, Normal nares present, Abnormal mucous membranes and turbinates present erythematous and Nasal discharge present purulent Face and sinus: Yes normal facial exam and Yes sinus tenderness Mouth: Normal oral and palatal mucosa present and moist mucous membranes Throat: Yes posterior oropharynx normal, Yes tonsils normal and Yes uvula midline Eyes General: appearance normal, both eyes and all related structures Neck Neck: Yes normal visual inspection Resp Effort & Inspection: normal respiratory effort, able to speak in complete sentences, Actively coughing, no respiratory distress, not tachypneic, no tripod positioning and no use of accessory muscles Auscultation: clear to auscultation bilaterally Cardio Rate: regular rate Rhythm: regular rhythm Heart sounds: normal S1 and S2 Skin General skin exam: no rashes or lesions noted Neuro General: patient oriented x3 Extrem General: Yes normal to inspection and Yes no clubbing, cyanosis or edema Assessment & Plan Assessment & Plan (1) Sinusitis: Code(s): J32.9 - Chronic sinusitis, unspecified Qualifiers: Sinusitis location: frontal Chronicity: acute Recurrence: non- recurrent Qualified Code(s): J01.10 - Acute frontal sinusitis, unspecified Plan: Supportive measures encouraged and reviewed. Advised consideration of sinus rinse if needed. Antibiotic sent to requested pharmacy, advised patient to take antibiotics until completed and not to stop if feeling better, unless the patient has side effects. Advised patient to follow up with primary care provider with worsening or failure to resolve. Plan See above for full details and plan. Medications: New amoxicillin-pot clavulanate 875-125 mg 1 tab PO BID 10 days 20 tabs 0RF Coding Level of Care Code Est Pt Level 3 (54811) Diagnoses Acute non-recurrent frontal sinusitis J01.10 Sinusitis location: frontal Chronicity: acute Recurrence: non-recurrent
== END 2024-01-05 10:37 | disposition home or self-care (01) ==
PROVIDERS: PCP Nurse Practitioner Family; Visit Provider Registered Nurse
DX: J01.10 Acute frontal sinusitis, unspecified (principal)

== ENCOUNTER → 2024-01-05 09:38 | Outpatient (BNVA) | payer OTHER, MEDICAID, SELFPAY | PROVIDERS: PCP Nurse Practitioner Family; Visit Provider Registered Nurse ==

== ENCOUNTER 2024-03-26 08:08 | Outpatient (REF) | payer OTHER, SELFPAY ==
[2024-03-26 12:00] LABS: Influenza A PCR POSITIVE (Negative); Influenza B PCR NEGATIVE (Negative); Resp Syncy Virus RNA Qual PCR NEGATIVE (Negative); SARS COV2 PCR INHOUSE NEGATIVE (Negative)
== END 2024-03-26 08:09 | disposition home or self-care (01) ==
LOC: HO.LAB 08:08
PROVIDERS: PCP Nurse Practitioner Family; Visit Provider Physician Assistant
DX: J06.9 Acute upper respiratory infection, unspecified (principal); Z13.83 Encounter for screening for respiratory disorder NEC
CPT/HCPCS: 0241U

== ENCOUNTER 2024-05-19 09:05 | Outpatient (AMB) | payer OTHER, SELFPAY ==
[2024-05-19 09:14] VITALS: BP 122/74; PULSE 74; TEMP 36.7; O2SAT 97; BMI 38.3
--- NOTE | 2024-05-19 09:14 | MHC.PC.OV ---
Vital Signs 05/19/24 09:14 Height 6 ft 1 in Weight 290 lb BMI 38.3 BP 122/74 Blood Pressure Location Lt brachial Position Sitting Pulse 74 Pulse Source Pulse Oximeter Temp 98.0 F Temp Source Oral Pulse Oximetry (%) 97 Oxygen Delivery Method Room Air Intake Visit Reasons: PE reschedule Intake Note: pt is here for PE Scabbler Required: No Accompanied by: Self / Same As Patient Allergies amoxicillin Allergy (Intermediate, Verified 05/19/24 09:15) face swelling Medication List - Last Reconciled 05/19/24 by Reed Coburn, [facility] blood pressure kit-extra large As directed budesonide-formoterol 80-4.5 mcg/actuation (Symbicort) 1 puff PO BID fluticasone propionate 50 mcg/actuation 2 sprays intranasal DAILY folic acid 1 mg PO DAILY lorazepam (Ativan) 0.5 mg PO DAILY PRN 28 days pantoprazole 40 mg PO DAILY zolpidem 5 mg PO BEDTIME PRN 30 days Tobacco use date assessed: 05/19/24 Dental Screening Dental Screen Date: 05/19/24 Did you have a dental visit in the last 12 months?: Yes Did you have a dental problem in the last 6 months where you did not have access to dental care?: No Was dental information given to patient?: Patient has dentist HPI PE reschedule HPI Details History of Present Illness The patient is a 49-year-old male presenting with respiratory illness. Symptoms have persisted for about a week to a week and a half. He denies fever or chills, but reports congestion and bilateral ear pressure, a continuation from a past ear infection for which he was treated. No current effusions or infections are observed, recently treated for a ear infection. The patient also experiences gastric discomfort and reports that pantoprazole is not providing adequate relief. He had intermittent diarrhea last week but denies experiencing blood in the stool or constipation now. Gastroenterology follow-up maybe indicated. Health Maintenance - Continue using Flonase for ear pressure relief - Follow up with Gastroenterology for ongoing gastric issues -colon screen is up to date Social History Review of Systems - Gastrointestinal: Denies blood stool or constipation; reports intermittent diarrhea and stomach discomfort - Respiratory: Denies fever or chills; reports congestion and respiratory illness - Ear/Nose/Throat: Reports bilateral ear pressure - General: Reports obesity -denies any si or hi Physical Exam General: Cooperative, healthy appearing, comfortable, no acute distress and well developed, but patient is obese Orientation: Patient oriented x3 Limitations: No limitations Head: Normal to inspection Ears: Hearing grossly normal bilaterally, Nose: Normal external nose present, but reports congestion Face and sinus: Normal facial exam Eyes: Appearance normal, both eyes and all related structures Neck: Normal visual inspection and Yes full ROM Respiratory: Normal respiratory effort and able to speak in complete sentences. Clear to auscultation bilaterally, but patient has some kind of respiratory illness Cardiovascular: Regular rate and rhythm. Normal S1 and S2 GI: Normal to inspection. Soft to palpation and nontender, but reports some stomach discomfort and intermittent diarrhea Skin: No rashes or lesions noted Neuro: Patient oriented x3 Extremities: Normal to inspection Results - A swab for viral illness is planned for assessment of respiratory condition. Plan The patient will continue using Flonase regularly for ear pressure management. Due to the reported ineffectiveness of pantoprazole for gastric discomfort, famotidine will be added to the regimen at night. The patient is recommended to follow up with Gastroenterology for his gastric symptoms, particularly due to recent intermittent diarrhea and discomfort. Obesity remains a noted condition; however, specific management was not addressed in this visit. A viral illness swab will be obtained for further investigation of respiratory symptoms. Discussion Notes The patient and I discussed his respiratory illness and potential viral causes, noting the absence of fever or chills. For bilateral ear pressure, I recommended continuing with Flonase, which has shown benefits. I advised adding famotidine to the treatment plan due to the reported ineffectiveness of pantoprazole. We discussed the importance of following up with Gastroenterology for further evaluation of his gastric discomfort and intermittent diarrhea. The consequences of obesity as a contributing factor to overall health were acknowledged. The need for a swab to assess for viral illness was explained to the patient, and he agreed to proceed with this diagnostic evaluation. Patient Instructions - Continue using Flonase for ear pressure. - Take famotidine at night for gastric discomfort. - Follow up with your Gastroenterology provider for ongoing stomach issues. - A swab for viral illness will be done to assess your respiratory condition. - Ensure to monitor your symptoms and report any new or worsening conditions. [facility] Medical History Fever SKYLER (obstructive sleep apnea) Asthma Chronic GERD Hernia Fatigue COVID Diverticulitis Surgical History Hx of colonoscopy History of esophagogastroduodenoscopy (EGD) Hx of cholecystectomy Family History Father HTN (hypertension) Stroke Heart attack Mother Lung cancer Maternal Grandmother Lung cancer Other Substance use disorder Social History Housing: House Patient Tobacco Use Status: Former Tobacco user Tobacco use type: Cigarette e-Cigarette/Vaping Use: Never Used service: No Current occupational status: employed Current occupation: [employer] Current occupational exposures/hazards: No Cognitive needs: No Hearing needs: No Vision needs: Yes Questionnaire PHQ-9 Over the last 2 weeks, how often have you been bothered by any of the following problems? 1. Little interest or pleasure in doing things: more than half the days 2. Feeling down, depressed, or hopeless: nearly every day 3. Trouble falling or staying asleep, or sleeping too much: more than half the days 4. Feeling tired or having little energy: nearly every day 5. Poor appetite or overeating: nearly every day 6. Feeling bad about yourself - or that you are a failure or have let yourself or your family down: nearly every day 7. Trouble concentrating on things, such as reading the newspaper or watching television: more than half the days 8. Moving or speaking so slowly that other people could have noticed. Or the opposite - being so fidgety or restless that you have been moving around a lot more than usual: more than half the days 9. Thoughts that you would be better off or of hurting yourself in some way: not at all Total score: 20 Depression Screening Interpretation: Positive Depression Screening Done: Yes 17325 - PHQ-9 Billing: Yes Source: Developed by Drs. Clay Leon, Katerin Reddy, Kamran Mcclellan and colleagues, with an educational qian from [employer]. Thrive Questionnaire Date Thrive assessed: 05/19/24 I am a: Patient What is your living situation today?: I have a steady place to live Within the past 12 months, did the food you bought not last and you didn't have the money to get more?: Never true Within the past 12 months, did you worry whether your food would run out before you got money to buy more?: Never true Do you have trouble paying for medicines?: No Do you have trouble getting transportation to medical appointments?: No Do you have trouble paying your heating and electricity bill?: No Do you have trouble taking care of your child, family member or friend?: No Do you have trouble with day-to-day activities such as bathing, preparing meals, shopping, managing finances, etc.?: Yes Are you currently unemployed and looking for a job?: No Are you interested in more education?: No Please select the resources that you would like help with: None Currently or been in a relationship where the following occur: No concerns reported THRIVE Score: 0 AUDIT C Alcohol Use Questionnaire (AUDIT-C) 1. How often do you have a drink containing alcohol?: Never 3. How often do you have six or more drinks on one occasion?: Never Total Score: 0 Score Reviewed/Action Taken: Yes BILL-7 AMB Questionnaire BILL-7 Date BILL - 7 assessed: 05/19/24 Feeling nervous, anxious, or on edge: 2 = More than half the days Not being able to stop or control worryin = More than half the days Worrying too much about different things: 2 = More than half the days Trouble relaxin = More than half the days Being so restless that it is hard to sit still: 0 = Not at all Becoming easily annoyed or irritable: 2 = More than half the days Feeling afraid as if something awful might happen: 2 = More than half the days Total BILL-7 score (0-4 normal; 5-9 mild; 10-14 moderate; 15-21 severe): 12 Source: Developed by Drs. Clay Leon, Katerin Reddy, Kamran Mcclellan and colleagues, with an educational qian from [employer] BILL-7 Assessment Billing BILL-7 Assessment Tool: BILL-7 Assessment 95706 (in therapy, denies any si or hi) Physical exam (Primary Care) Vital Signs: Last Vital Signs Temp 98.0 F 05/19/24 09:14 Pulse 74 05/19/24 09:14 BP 122/74 05/19/24 09:14 Pulse Ox 97 05/19/24 09:14 Oxygen Delivery Method Room Air 05/19/24 09:14 BMI result Body Mass Index 38.3 Tobacco/Smoking Status: Tobacco use Status Tobacco use date assessed 05/19/24 05/19/24 09:17 Patient Tobacco Use Status Former Tobacco user 05/19/24 09:17 Tobacco use type Cigarette 05/19/24 09:17 e-Cigarette/Vaping Use Never Used 05/19/24 09:17 PHQ-9: PHQ-9 Score PHQ-9: Total score 20 05/19/24 09:27 Depression Screening Interpretation: Positive Thrive Assessment: Date of Thrive Assessment Date Thrive assessed 05/19/24 05/19/24 09:17 Currently or been in a relationship where the following occur: No concerns reported Coding Level of Care Code Est Pt Prev Care 40-64y(84557) Diagnoses Physical exam Z00.00 Screening for prostate cancer Z12.5 Viral upper respiratory infection J06.9 Additional Codes PHQ-9 - 36751 - PHQ-9 Billing: Yes ([id number]) BILL-7 Assessment Billing - BILL-7 Assessment Tool: BILL-7 Assessment 18708 ([id number]) Assessment & Plan Assessment & Plan (1) Physical exam: Code(s): Z00.00 - Encounter for general adult medical examination without abnormal findings Category: Medical (2) Screening for prostate cancer: Code(s): Z12.5 - Encounter for screening for malignant neoplasm of prostate Category: Medical (3) Viral upper respiratory infection: Code(s): J06.9 - Acute upper respiratory infection, unspecified Category: Medical Plan . Orders: Orders Resp Pathogen Panel - [facility] Today J06.9 - Acute upper respiratory infection, unspecified Complete Blood Count Auto Diff Today Z00.00 - Encounter for general adult medical examination without abnormal findings Comprehensive [place]. Panel Fast Today Z00.00 - Encounter for general adult medical examination without abnormal findings UA CC w/rflx Micro + Cult Today Z00.00 - Encounter for general adult medical examination without abnormal findings Lipid Panel Today Z00.00 - Encounter for general adult medical examination without abnormal findings TSH reflex Free T4 Today Z00.00 - Encounter for general adult medical examination without abnormal findings Prostate Specific Antigen Scr Today Z12.5 - Encounter for screening for malignant neoplasm of prostate Medications: New famotidine 20 mg PO BEDTIME 30 tabs 2RF Refilled fluticasone propionate 50 mcg/actuation 2 sprays intranasal DAILY 16 mL 5RF
== END 2024-05-19 10:23 | disposition home or self-care (01) ==
LOC: HO.HMCC 09:06
PROVIDERS: PCP Nurse Practitioner Family; Visit Provider Nurse Practitioner Family
DX: Z00.00 Encounter for general adult medical examination without abnormal findings (principal); Z12.5 Encounter for screening for malignant neoplasm of prostate; J06.9 Acute upper respiratory infection, unspecified

== ENCOUNTER 2024-05-19 09:05 | Outpatient (REF) | payer OTHER, SELFPAY ==
[2024-05-19 13:36] LABS: MANUAL DIFF FLAG NO
[2024-05-19 13:39] LABS: Basophils Percent Auto 0.5 % (0-2); Eosinophils Absolute Auto 0.2 X10*3/uL (0.0-0.4); Eosinophils Percent Auto 3.8 % (0-4); Hematocrit 41.4 % (42.0-52.0); Hemoglobin 14.3 g/dl (14.0-18.0); Lymphocytes Absolute Auto 1.1 X10*3/uL (1.2-4.9); Lymphocytes Percent Auto 28.3 % (20-40); Mean Corpuscular HGB Conc 34.5 g/dl (31.0-36.0); Mean Corpuscular Volume 89.6 fL (80.0-98.0); Mean Platelet Volume 8.8 fL (9.4-12.4); Monocytes Absolute Auto 0.3 X10*3/uL (0.1-1.2); Monocytes Percent Auto 7.8 % (2-11); Neutrophils Absolute Auto 2.4 x10*3/uL (2.0-8.3); Neutrophils Percent Auto 59.6 % (45-73); Platelet Count 161 X10*3/uL (160-400); Red Blood Count 4.62 X10*6/uL (4.60-5.80); Red Cell Distribution Width 13.2 % (11.0-16.0)
[2024-05-19 13:52] LABS: Appearance Urine Clear; Color Urine Yellow; Glucose Urine UA Negative (Negative); Leukocyte Esterase Urine Negative (Negative); Nitrite Urine Negative (Negative); Specific Gravity - Urine 1.015 (1.005-1.025); Urine Blood Negative (Negative); Urine Ketones Negative (Negative); Urine Protein Negative (Neg-Trace)
[2024-05-19 14:20] LABS: Prostate Specific Antigen Scr 0.97 ng/mL (<0.05-4.0)
[2024-05-19 14:23] LABS: Alanine Aminotransferase 29 U/L (0-40); Albumin Level 4.4 g/dL (3.5-5.0); Anion Gap 10 (12-20); Aspartate Amino Transferase 30 U/L (5-37); Bilirubin Total 0.5 mg/dL (0.0-1.0); Blood Urea Nitrogen 10 mg/dL (9-16); Calcium 9.4 mg/dL (8.4-10.2); Carbon Dioxide 24 mmol/L (22-29); Chloride 110 mmol/L (96-108); Cholesterol 186 mg/dL (<200); Estimated Glomerular Filt Rate > 60; Glucose Fasting 99 mg/dL (60-99); HDL Cholesterol 34 mg/dL (>40); LDL Cholesterol Calculated 133 mg/dL (<100); Potassium 4.3 mmol/L (3.3-5.1); Sodium 140 mmol/L (135-145); Total Protein 7.7 g/dL (6.5-8.0); Triglycerides 99 mg/dL (<150)
[2024-05-19 14:27] LABS: TSH reflex Free T4 1.64 uIU/mL (0.32-4.0)
[2024-05-19 14:38] LABS: Alkaline Phosphatase 53 U/L (39-117)
[2024-05-19 15:02] LABS: Adenovirus PCR Not Detected (Not Detect.); Bordetella parapertussis PCR Not Detected (Not Detect.); Bordetella pertussis PCR Not Detected (Not Detect.); Chlamydia pneumoniae PCR Not Detected (Not Detect.); Coronavirus 229E PCR Not Detected (Not Detect.); Coronavirus HKU1 PCR Not Detected (Not Detect.); Coronavirus NL63 PCR Not Detected (Not Detect.); Coronavirus OC43 PCR Not Detected (Not Detect.); Human metapneumovirus PCR Not Detected (Not Detect.); Influenza A PCR Not Detected (Not Detect.); Influenza B PCR Not Detected (Not Detect.); Mycoplasma pneumoniae PCR Not Detected (Not Detect.); Parainfluenza 1 PCR Not Detected (Not Detect.); Parainfluenza 2 PCR Not Detected (Not Detect.); Parainfluenza 3 PCR Not Detected (Not Detect.); Parainfluenza 4 PCR Not Detected (Not Detect.); RSV PCR Detected (Not Detect.); Rhino/Enterovirus PCR Not Detected (Not Detect.); SARS-CoV-2 PCR Not Detected (Not Detect.)
== END 2024-05-19 09:06 | disposition home or self-care (01) ==
LOC: HO.HMGCLDS 09:05
PROVIDERS: PCP Nurse Practitioner Family; Visit Provider Nurse Practitioner Family
DX: Z00.00 Encounter for general adult medical examination without abnormal findings (principal); J06.9 Acute upper respiratory infection, unspecified; Z12.5 Encounter for screening for malignant neoplasm of prostate
CPT/HCPCS: 36415; 80053; 80061; 81003; 84153; 84443; 85025; 87633; 96127

== ENCOUNTER 2024-09-09 14:11 | Outpatient (REF) | payer OTHER, SELFPAY ==
--- NOTE | ~2024-09-09 | XR_ITS ---
EXAMINATION: XR FOOT 3 OR MORE VIEWS BILATERAL HISTORY: Bilateral foot pain. COMPARISON: There are no prior studies available for comparison. FINDINGS: Six views of the bilateral feet are submitted. Osseous mineralization is normal. There is no fracture or dislocation. There is mild narrowing of the 1st MTP joints of both feet. There are small plantar calcaneal spurs. The soft tissues are unremarkable. XR/XR Foot Julio 3V IMPRESSION: Mild narrowing of the 1st MTP joints of both feet. Mild plantar calcaneal spurs. Electronically signed by: Clay Duncan MD 09/10/2024 07:53 AM EDT
== END 2024-09-09 14:12 | disposition home or self-care (01) ==
LOC: HO.HMGCX 14:11
PROVIDERS: PCP Nurse Practitioner Family; Visit Provider Nurse Practitioner Family
DX: M77.32 Calcaneal spur, left foot (principal); M77.31 Calcaneal spur, right foot
CPT/HCPCS: 73630; 96127

== ENCOUNTER 2024-09-09 14:11 | Outpatient (AMB) | payer OTHER, SELFPAY ==
--- NOTE | 2024-09-09 14:18 | A.OFFPC_ITS ---
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 History of Present Illness The patient is a 49-year-old male presenting with bilateral foot pain. He reports sharp pain in the plantar aspect of his feet, especially in the heels and midfoot, with no involvement of the toes. The pain has been significant enough to prompt the purchase of shoe inserts, which have provided some relief. Tenderness is noted upon palpation of the plantar aspect, particularly in the midfoot and heel regions. There is a suspicion of plantar fasciitis, and the patient is to undergo x-rays and a referral to podiatry is planned. The patient is also noted to be morbidly obese, which is contributing to his foot condition. Weight loss was discussed as a beneficial intervention for his condition. Social History Health Maintenance Review of Systems - Musculoskeletal: Reports sharp pain in the plantar aspect of the feet, especially in the heels and midfoot. Denies neuropathy. Physical Exam General: Cooperative, healthy appearing, comfortable, no acute distress and well developed, morbidly Orientation: Patient oriented x3 Limitations: No limitations Head: Normal to inspection Ears: Hearing grossly normal bilaterally Nose: Normal external nose present Face and sinus: Normal facial exam Eyes: Appearance normal, both eyes and all related structures Neck: Normal visual inspection and Yes full ROM Respiratory: Normal respiratory effort and able to speak in complete sentences. Clear to auscultation bilaterally Cardiovascular: Regular rate and rhythm. Normal S1 and S2 GI: Normal to inspection. Soft to palpation and nontender Skin: No rashes or lesions noted Neuro: Patient oriented x3 Extremities: Tenderness noted especially to mid foot heel region bilaterally (dorsiflexion of toes). Morbidly obese. + DP bilat Results Plan The plan includes obtaining x-rays of the feet to further evaluate the cause of the pain. A referral to podiatry is also planned to assess and manage the suspected plantar fasciitis. Additionally, the importance of weight loss was emphasized to the patient as a means to alleviate the pressure on his feet and improve his overall condition. Discussion Notes I discussed with the patient the likelihood of plantar fasciitis contributing to his foot pain and the need for further evaluation through x-rays and a podiatry referral. We also talked about the impact of his weight on his foot condition and how weight loss could be beneficial. Patient Instructions - Follow up with podiatry as referred. - Obtain x-rays of the feet as discussed . - Consider weight loss strategies to hel p alleviate foot pain. 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 1. Little interest or pleasure in doing things: nearly every day 2. Feeling down, depressed, or hopeless: several days 3. Trouble falling or staying asleep, or sleeping too much: several days 4. Feeling tired or having little energy: nearly every day 5. Poor appetite or overeating: more than half the days 6. Feeling bad about yourself - or that you are a failure or have let yourself o r your family down: nearly every day 7. Trouble concentrating on things, such as reading the newspaper or watching television: more than half the days 8. Moving or speaking so slowly that other people could have noticed. Or the opposite - being so fidgety or restless that you have been moving around a lot more than usual: nearly every day 9. Thoughts that you would be better off or of hurting yourself in some way: not at all Total score: 18 Depression Screening Interpretation: Positive Depression Screening Done: Yes 67256 - PHQ-9 Billing: Yes Source: Developed by Drs. Clay Leon, Katerin Reddy, Kamran Mcclellan and colleagues, with an educational qian from [employer]. Thrive Questionnaire Date Thrive assessed: 09/09/24 I am a: Patient What is your living situation today?: I have a steady place to live Within the past 12 months, did the food you bought not last and you didn't have the money to get more?: Never true Within the past 12 months, did you worry whether your food would run out before you got money to buy more?: Never true Do you have trouble paying for medicines?: No Do you have trouble getting transportation to medical appointments?: No Do you have trouble paying your heating and electricity bill?: No Do you have trouble taking care of your child, family member or friend?: No Do you have trouble with day-to-day activities such as bathing, preparing meals, shopping, managing finances, etc.?: Yes Are you currently unemployed and looking for a job?: No Are you interested in more education?: No Please select the resources that you would like help with: None Currently or been in a relationship where the following occur: No concerns reported THRIVE Score: 0 BILL-7 AMB Questionnaire BILL-7 Date BILL - 7 assessed: 09/09/24 Feeling nervous, anxious, or on edge: 3 = Nearly every day Not being able to stop or control worryin = Nearly every day Worrying too much about different things: 3 = Nearly every day Trouble relaxin = Nearly every day Being so restless that it is hard to sit still: 3 = Nearly every day Becoming easily annoyed or irritable: 1 = Several days Feeling afraid as if something awful might happen: 2 = More than half the days Total BILL-7 score (0-4 normal; 5-9 mild; 10-14 moderate; 15-21 severe): 18 Source: Developed by Drs. Clay Leon, Katerin Reddy, Kamran Mcclellan and colleagues, with an educational qian from [employer]. BILL-7 Assessment Billing BILL-7 Assessment Tool: BILL-7 Assessment 45502 Physical exam (Primary Care) Vital Signs: Last Vital Signs Temp 98.3 F 09/09/24 14:20 Pulse 73 09/09/24 14:20 Resp 16 09/09/24 14:20 BP 128/90 H 09/09/24 14:20 Pulse Ox 96 09/09/24 14:20 Oxygen Delivery Method Room Air 09/09/24 14:20 BMI result Body Mass Index 39.6 Tobacco/Smoking Status: Tobacco use Status Tobacco use date assessed 09/09/24 09/09/24 14:26 Patient Tobacco Use Status Former Tobacco user 09/09/24 14:26 Tobacco use type Cigarette 09/09/24 14:26 e-Cigarette/Vaping Use Never Used 09/09/24 14:26 PHQ-9: PHQ-9 Score PHQ-9: Total score 18 09/09/24 14:52 Depression Screening Interpretation: Positive Thrive Assessment: Date of Thrive Assessment Date Thrive assessed 09/09/24 09/09/24 14:35 Currently or been in a relationship where the following occur: No concerns reported Coding Level of Care Code Est Pt Level 3 (03260) Diagnoses Bilateral foot pain M79.671; M79.672 Additional Codes BILL-7 Assessment Billing - BILL-7 Assessment Tool: BILL-7 Assessment 04661 ([id number]) PHQ-9 - 64157 - PHQ-9 Billing: Yes ([id number]) Assessment & Plan Assessment & Plan (1) Bilateral foot pain: Code(s): M79.671 - Pain in right foot; M79.672 - Pain in left foot Category: Medical Plan . Orders: Referrals Podiatry Referral M79.671 - Pain in right foot, M79.672 - Pain in left foot
[2024-09-09 14:20] VITALS: BP 128/90; PULSE 73; RESP 16; TEMP 36.8; O2SAT 96; BMI 39.6
== END 2024-09-09 15:25 | disposition home or self-care (01) ==
LOC: HO.HMCC 14:12
PROVIDERS: PCP Nurse Practitioner Family; Visit Provider Nurse Practitioner Family
DX: M79.671 Pain in right foot (principal); M79.672 Pain in left foot

== ENCOUNTER → 2024-09-09 15:31 | Outpatient (BNV) | payer OTHER, SELFPAY | PROVIDERS: PCP Nurse Practitioner Family; Visit Provider Radiology Diagnostic Radiology | DX: M19.079 Primary osteoarthritis, unspecified ankle and foot (principal) | CPT/HCPCS: 73630 ==

== ENCOUNTER 2025-01-12 15:39 | Outpatient (AMB) | payer OTHER, SELFPAY ==
[2025-01-12 15:55] VITALS: BP 130/88; PULSE 68; RESP 16; O2SAT 96; BMI 41.4
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
== END 2025-01-12 17:11 | disposition home or self-care (01) ==
LOC: HO.HMCC 15:40
PROVIDERS: PCP Nurse Practitioner Family; Visit Provider Nurse Practitioner Family
DX: M79.671 Pain in right foot (principal); M79.672 Pain in left foot; F41.9 Anxiety disorder, unspecified; F32.A Depression, unspecified

== ENCOUNTER → 2025-01-12 15:39 | Outpatient (BNVA) | payer OTHER, SELFPAY | PROVIDERS: PCP Nurse Practitioner Family; Visit Provider Nurse Practitioner Family | DX: E66.01 Morbid (severe) obesity due to excess calories (principal); F41.9 Anxiety disorder, unspecified; F32.A Depression, unspecified; M79.671 Pain in right foot; M79.672 Pain in left foot; Z68.41 Body mass index [BMI] 40.0-44.9, adult | CPT/HCPCS: 99212 ==

== ENCOUNTER 2025-02-09 07:57 | Outpatient (AMB) | payer OTHER, SELFPAY ==
[2025-02-09 08:11] VITALS: BMI 40.9
--- NOTE | 2025-02-09 08:11 | MHC.OFFVIS ---
Vital Signs 02/09/25 08:11 Height 6 ft 1 in Weight 310 lb BMI 40.9 Intake Visit Reasons: bilateral foot pain Intake Note: Mello is a 49 year old male who presents to the office today as a new patient visit for bilateral foot pain referred by his PCP Reed Coburn. Pt states his foot becomes numb however the pain seems to be located in his heel and this has been going on for about 10 years off and on. He has tried supportive shoe wear and insoles and has found slight relief for his symptoms. Imaging is all set in patients chart. Patient mentions the pain is worst in his left foot vs the right. Allergies amoxicillin Allergy (Intermediate, Verified 02/09/25 08:12) face swelling HPI Comments Details: Chief Complaint The patient presents with a 10-year history of intermittent bilateral foot pain, which is worse in the left foot. History of Present Illness The patient is a 50 year old male presenting with bilateral foot pain. He reports the pain has been occurring intermittently for 10 years and has recently worsened. The pain is worse in his left foot, radiating deep within the heel area, and is exacerbated by standing. He notes it is particularly bad in the morning if he does not put on supportive shoes immediately upon waking, causing him to hobble. The patient also reports numbness, which he attributes to pushing through the pain. The onset of his symptoms coincided with a change in activity level, from being very active (private [employer], [employer] fighting) to being very inactive, and then starting a job that required him to be on his feet for 70-80 hours a week. He has found relief by using better shoes and inserts, though his current Dr. Jenkins's inserts need frequent replacement. He also notes his symptoms are minimal when his weight is lower, around 230 pounds. Past workup includes an x-ray which showed mild bilateral heel spurs. He has a significant history of gastrointestinal bleeding, precluding the use of NSAIDs like ibuprofen. Social History: - Employment: Previously worked in private [employer] and now has a job that requires him to be on his feet for 70-80 hours per week. - Activity Level: Formerly very active with [employer], he became inactive for a period before starting his current high-demand job. - Family Status: The patient reports significant stress related to caring for his three children, including his autistic son. - Weight Management: The patient notes he is currently over 300ib and is working on reducing his weight to <230ib. 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 - He currently works a job requiring him to be on his feet for 70-80 hours per week. 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 - Colonoscopy (past): Identified a bleeding site in the colon. Pathology results Physical Exam - Feet: Palpation elicits tenderness deep on the lateral aspect of the foot. On weight-bearing exam, patient has high arches (pes cavus). Vital Signs: BMI result Body Mass Index 40.9 Results Reviewed Results Reviewed: X-ray Read: 09/09/2024 X-ray right foot 3 views (AP, MO, Lateral) reviewed which shows mild plantar calcaneal spur. I personally reviewed the imaging and my findings are listed above. X-ray Read: 09/09/2024 X-ray left foot 3 views (AP, MO, Lateral) reviewed which shows mild plantar calcaneal spur. I personally reviewed the imaging and my findings are listed above. Assessment & Plan Assessment & Plan (1) Plantar fasciitis, bilateral: Code(s): M72.2 - Plantar fascial fibromatosis Category: Medical Plan: The patient's symptoms of post-static dyskinesia, pain with prolonged standing, and pain localized to the heel are characteristic of plantar fasciitis, which is likely exacerbated by his high arches and demanding job. The most effective treatment is stretching the plantar fascia and Achilles tendon, and a handout with specific exercises was provided. For home care, the patient can use a frozen water bottle to roll under his foot for combined cryotherapy and massage. It is recommended that the patient replace his current Dr. Jenkins's inserts, which offer more cushioning than support, with higher-end, more structured inserts designed for high arches. Recommended Powerstep and Superfeet. A gradual break-in period for new inserts is advised, starting with one hour per day and increasing incrementally. Changing to a more supportive shoe with a rocker-bottom design, such as Hoka shoes, is recommended to offload the heel. Oral anti-inflammatory medications are contraindicated due to the patient's history of gastrointestinal bleeding. If conservative treatments fail, a cortisone injection is a future treatment option, though the patient prefers to avoid this if possible. Follow up in 1 month Plan Counseling The patient was counseled regarding the diagnosis of plantar fasciitis, explaining it as inflammation and thickening of the foot's plantar ligament, with his mild heel spurs being indicative of chronic strain. Emphasis was placed on daily stretching as the most critical component of the treatment plan to prevent micro-tearing of the ligament. The benefits of rocker-bottom shoes and structured orthotic inserts over cushioned ones like Dr. Jenkins's were explained, especially for his high arch foot type. The option of a future cortisone injection was discussed as a possibility if conservative measures do not provide adequate relief, while acknowledging the patient's preference to avoid it. Coding Level of Care Code New Pt Level 4 (10529) Diagnoses Plantar fasciitis, bilateral M72.2 Time Spent (min) 35
== END 2025-02-09 08:47 | disposition home or self-care (01) ==
PROVIDERS: PCP Nurse Practitioner Family; Visit Provider Student in an Organized Health Care Education/Training Program
DX: M72.2 Plantar fascial fibromatosis (principal)
CPT/HCPCS: 99204

== ENCOUNTER → 2025-02-09 07:57 | Outpatient (BNVA) | payer OTHER, SELFPAY | PROVIDERS: PCP Nurse Practitioner Family; Visit Provider Student in an Organized Health Care Education/Training Program | DX: M72.2 Plantar fascial fibromatosis (principal) | CPT/HCPCS: 99202 ==